=== PATIENT | male | born 1975 | race Caucasian/White ===

== ENCOUNTER → 2017-11-27 | Outpatient (REF) | payer OTHER ==
[2017-11-27 11:13] LABS: BASO # 0.1 10^3/uL (0.0-0.2); BASO % 1.1 % (0.0-1.0); EOS # 0.2 10^3/uL (0.0-0.50); EOS % 4.3 % (0.0-3.0); HEMOGLOBIN 14.9 g/dl (14.0-18.0); IMMATURE GRANULOCYTE % 0.2 % (0-3.0); LYMPH # 1.5 10^3/uL (1.5-4.5); LYMPH % 31.2 % (24.0-44.0); MEAN CORPUSCULAR HEMOGLOBIN 29.7 pg (27.0-33.0); MEAN CORPUSCULAR HGB CONC 34.7 g/dl (32.0-36.5); MEAN CORPUSCULAR VOLUME 85.7 fl (80.0-96.0); MONO # 0.6 10^3/uL (0.0-0.8); MONO % 12.4 % (0.0-5.0); NEUTROPHILS # 2.4 10^3/uL (1.8-7.7); NEUTROPHILS % 50.8 % (36.0-66.0); PLATELET COUNT, AUTOMATED 196 10^3/uL (150-450); RED BLOOD COUNT 5.02 10^6/uL (4.30-6.10); RED CELL DISTRIBUTION WIDTH 12.3 % (11.5-14.5); WHITE BLOOD COUNT 4.7 10^3/uL (4.0-10.0)
[2017-11-27 11:41] LABS: TESTOSTERONE 384 NG/DL (241-827)
[2017-11-27 11:54] LABS: ALBUMIN 3.8 GM/DL (3.2-5.2); ALBUMIN/GLOBULIN RATIO 1.19 (1.00-1.93); ALKALINE PHOSPHATASE 91 U/L (45-117); ALT/SGPT 39 U/L (12-78); ANION GAP 10 MEQ/L (8-16); AST/SGOT 21 U/L (7-37); BILIRUBIN,TOTAL 0.5 MG/DL (0.2-1.0); BLOOD UREA NITROGEN 15 MG/DL (7-18); CALCIUM LEVEL 8.8 MG/DL (8.5-10.1); CARBON DIOXIDE LEVEL 27 MEQ/L (21-32); CHLORIDE LEVEL 106 MEQ/L (98-107); CHOLESTEROL LEVEL 190 MG/DL (<200); CREATININE FOR GFR 0.91 MG/DL (0.70-1.30); GLOMERULAR FILTRATION RATE > 60.0 (>60); GLUCOSE, FASTING 94 MG/DL (70-100); HDL CHOLESTEROL 40 MG/DL (>40); LDL CHOLESTEROL 115.8 MG/DL (<100); NON-HDL-C 150 MG/DL; POTASSIUM SERUM 4.1 MEQ/L (3.5-5.1); PROSTATIC SPECIFIC AG MONITOR 0.37 NG/ML (< 4.0); SODIUM LEVEL 143 MEQ/L (136-145); THYROID STIMULATING HORMONE 0.585 uIU/ML (0.358-3.740); TRIGLYCERIDES LEVEL 171 MG/DL (<150)
== END ==
LOC: M LAB REF 10:47
DX: R68.82 Decreased libido (principal); Z00.01 Encounter for general adult medical examination with abnormal findings; R53.83 Other fatigue

== ENCOUNTER → 2017-12-11 | Outpatient (REF) | payer OTHER ==
[2017-12-11 13:01] LABS: TESTOSTERONE 378 NG/DL (241-827)
== END ==
LOC: M LAB REF 11:59
DX: R68.82 Decreased libido (principal)
CPT/HCPCS: 84403

== ENCOUNTER 2017-12-15 19:51 | Emergency (ER) | payer OTHER ==
[2017-12-15 20:28] LABS: HEMATOCRIT 44.5 % (42.0-52.0); HEMOGLOBIN 15.5 g/dl (14.0-18.0); MEAN CORPUSCULAR HEMOGLOBIN 30.1 pg (27.0-33.0); MEAN CORPUSCULAR HGB CONC 34.8 g/dl (32.0-36.5); MEAN CORPUSCULAR VOLUME 86.4 fl (80.0-96.0); PLATELET COUNT, AUTOMATED 235 10^3/uL (150-450); RED BLOOD COUNT 5.15 10^6/uL (4.30-6.10); RED CELL DISTRIBUTION WIDTH 12.6 % (11.5-14.5); WHITE BLOOD COUNT 10.1 10^3/uL (4.0-10.0)
[2017-12-15 20:58] LABS: AMPHETAMINES LEVEL URINE POSITIVE (NEGATIVE); BARBITURATES URINE NEGATIVE (NEGATIVE); BENZODIAZEPINES URINE NEGATIVE (NEGATIVE); CANNABINOIDS URINE NEGATIVE (NEGATIVE); COCAINE METABOLITE URINE NEGATIVE (NEGATIVE); METHADONE URINE NEGATIVE (NEGATIVE); OPIATES URINE NEGATIVE (NEGATIVE); PHENCYCLIDINE URINE NEGATIVE (NEGATIVE)
[2017-12-15 21:07] LABS: ACETAMINOPHEN LEVEL < 2.0 UG/ML (10.0-30.0); ALBUMIN 4.1 GM/DL (3.2-5.2); ALBUMIN/GLOBULIN RATIO 1.14 (1.00-1.93); ALKALINE PHOSPHATASE 101 U/L (45-117); ALT/SGPT 33 U/L (12-78); ANION GAP 12 MEQ/L (8-16); AST/SGOT 18 U/L (7-37); BILIRUBIN,DIRECT 0.1 MG/DL (0.0-0.2); BILIRUBIN,TOTAL 0.6 MG/DL (0.2-1.0); BLOOD UREA NITROGEN 15 MG/DL (7-18); CALCIUM LEVEL 8.2 MG/DL (8.5-10.1); CARBON DIOXIDE LEVEL 21 MEQ/L (21-32); CHLORIDE LEVEL 108 MEQ/L (98-107); CREATININE FOR GFR 0.74 MG/DL (0.70-1.30); ETHYL ALCOHOL (ETHANOL) 0.116 % (0.000-0.010); GLOMERULAR FILTRATION RATE > 60.0 (>60); GLUCOSE, FASTING 90 MG/DL (70-100); POTASSIUM SERUM 3.5 MEQ/L (3.5-5.1); SALICYLATE LEVEL < 1.7 MG/DL (5.0-30.0); SODIUM LEVEL 141 MEQ/L (136-145); TOTAL PROTEIN 7.7 GM/DL (6.4-8.2)
== END 2017-12-15 21:54 | disposition home or self-care (01) ==
LOC: M ED 19:51
DX: F43.20 Adjustment disorder, unspecified (principal); F33.9 Major depressive disorder, recurrent, unspecified; Z91.5 Personal history of self-harm; Z79.899 Other long term (current) drug therapy; Z88.2 Allergy status to sulfonamides
CPT/HCPCS: 80320

== ENCOUNTER → 2018-04-05 | Outpatient (CLI) | payer OTHER ==
[2018-04-12 08:15] LABS: SUMMARY SEE SEPARATE REPORT
== END ==
LOC: M LAB 09:32
DX: F60.3 Borderline personality disorder (principal)
CPT/HCPCS: 80320

== ENCOUNTER → 2018-04-22 | Outpatient (REF) | payer OTHER ==
[2018-04-22 15:07] LABS: TESTOSTERONE 369 NG/DL (241-827)
== END ==
LOC: M LAB REF 13:47
DX: R68.82 Decreased libido (principal)
CPT/HCPCS: 84403

== ENCOUNTER 2018-09-19 13:58 | Emergency (ER) | payer OTHER ==
[2018-09-19] MEDS: ONDANSETRON 4MG/2ML VIAL (J2405) IV (14:29)
[2018-09-19] MEDS: NS 1,000 ML IV (14:29)
[2018-09-19 14:39] LABS: BASO # 0.1 10^3/uL (0.0-0.2); BASO % 1.2 % (0.0-1.0); EOS % 0.8 % (0.0-3.0); HEMOGLOBIN 17.9 g/dl (13.5-17.5); IMMATURE GRANULOCYTE % 0.4 % (0-3.0); LYMPH # 1.1 10^3/uL (1.5-4.5); LYMPH % 23.1 % (24.0-44.0); MEAN CORPUSCULAR HEMOGLOBIN 32.3 pg (27.0-33.0); MEAN CORPUSCULAR HGB CONC 36.5 g/dl (32.0-36.5); MEAN CORPUSCULAR VOLUME 88.3 fl (80.0-96.0); MONO # 0.6 10^3/uL (0.0-0.8); NEUTROPHILS % 61.5 % (36.0-66.0); PLATELET COUNT, AUTOMATED 183 10^3/uL (150-450); RED BLOOD COUNT 5.55 10^6/uL (4.30-6.10); RED CELL DISTRIBUTION WIDTH 13.2 % (11.5-14.5); WHITE BLOOD COUNT 4.9 10^3/uL (4.0-10.0)
[2018-09-19 15:06] LABS: ALBUMIN 4.1 GM/DL (3.2-5.2); ALBUMIN/GLOBULIN RATIO 1.11 (1.00-1.93); ALKALINE PHOSPHATASE 97 U/L (45-117); ALT/SGPT 58 U/L (12-78); ANION GAP 11 MEQ/L (8-16); AST/SGOT 36 U/L (7-37); BILIRUBIN,DIRECT 0.2 MG/DL (0.0-0.2); BILIRUBIN,TOTAL 0.9 MG/DL (0.2-1.0); BLOOD UREA NITROGEN 16 MG/DL (7-18); CALCIUM LEVEL 8.7 MG/DL (8.5-10.1); CARBON DIOXIDE LEVEL 26 MEQ/L (21-32); CHLORIDE LEVEL 100 MEQ/L (98-107); CREATININE FOR GFR 0.83 MG/DL (0.70-1.30); ETHYL ALCOHOL (ETHANOL) 0.153 % (0.000-0.010); GLOMERULAR FILTRATION RATE > 60.0 (>60); GLUCOSE, FASTING 111 MG/DL (70-100); LIPASE 109 U/L (73-393); POTASSIUM SERUM 3.7 MEQ/L (3.5-5.1); SODIUM LEVEL 137 MEQ/L (136-145); TOTAL PROTEIN 7.8 GM/DL (6.4-8.2)
[2018-09-19] MEDS ORDERED: ISOVUE-370 76% 100ML VIAL (Q9967) As Ordered (15:42)
[2018-09-19] MEDS: OXAZEPAM 15 MG CAP PO (16:58)
== END 2018-09-19 19:25 | disposition home or self-care (01) ==
LOC: M ED 13:58
DX: F10.129 Alcohol abuse with intoxication, unspecified (principal); R11.2 Nausea with vomiting, unspecified; K76.0 Fatty (change of) liver, not elsewhere classified; F10.20 Alcohol dependence, uncomplicated; F32.9 Major depressive disorder, single episode, unspecified; F41.9 Anxiety disorder, unspecified; F43.10 Post-traumatic stress disorder, unspecified; F90.9 Attention-deficit hyperactivity disorder, unspecified type; Z79.899 Other long term (current) drug therapy; Z88.2 Allergy status to sulfonamides
CPT/HCPCS: J2405

== ENCOUNTER 2018-10-15 18:19 | Emergency (ER) | payer OTHER ==
[~2018-10-15] VITALS: Ht 175.3 cm; Wt 87.4 kg
[~2018-10-15 18:19] MED LIST: ABIL1TAB13 PO; ADDE20CA3 PO; ATOM40CA PO; CHLOR5CA PO; CIPR500T89 PO; GUAN1TA PO; K-PHTAB PO; KLON1TAB PO; METR500IV PO; MINI1CAP PO; OXAZ15CA4 PO; OXAZ30CA2 PO; PRAZ1CAP PO; PROZ20CA11 PO; PROZ40CA PO; TRAZ-163 PO; TRAZ100T2 PO; VENL225T PO; VENL75CA2 PO; XANA0.5T PO; XANA1TAB2 PO; ZOFR4TAB14 PO
[2018-10-15] MEDS ORDERED: ZIPR60CA11 (18:33)
[2018-10-15] MEDS ORDERED: CLON1TAB8 (18:33)
[2018-10-15] MEDS ORDERED: SERT-138 (18:33)
[2018-10-15] MEDS ORDERED: VYVA50CA4 PO (18:34)
[2018-10-15] MEDS ORDERED: NS 1,000 ML IV ONE (21:00)
[2018-10-15] MEDS ORDERED: ONDANSETRON 4MG/2ML VIAL (J2405) IV ONE (21:00)
[2018-10-15 21:37] LABS: BASO # 0.1 10^3/uL (0.0-0.2); BASO % 1.2 % (0.0-1.0); EOS # 0.2 10^3/uL (0.0-0.50); HEMATOCRIT 44.2 % (42.0-52.0); HEMOGLOBIN 16.1 g/dl (13.5-17.5); LYMPH # 1.7 10^3/uL (1.5-4.5); LYMPH % 34.7 % (24.0-44.0); MEAN CORPUSCULAR HEMOGLOBIN 32.1 pg (27.0-33.0); MEAN CORPUSCULAR HGB CONC 36.4 g/dl (32.0-36.5); MEAN CORPUSCULAR VOLUME 88.2 fl (80.0-96.0); MONO # 0.7 10^3/uL (0.0-0.8); MONO % 13.1 % (0.0-5.0); NEUTROPHILS # 2.4 10^3/uL (1.8-7.7); NEUTROPHILS % 47.8 % (36.0-66.0); PLATELET COUNT, AUTOMATED 238 10^3/uL (150-450); RED BLOOD COUNT 5.01 10^6/uL (4.30-6.10)
[2018-10-15 22:00] LABS: ALBUMIN 3.6 GM/DL (3.2-5.2); ALT/SGPT 41 U/L (12-78); BILIRUBIN,DIRECT 0.1 MG/DL (0.0-0.2); BILIRUBIN,TOTAL 0.5 MG/DL (0.2-1.0); BLOOD UREA NITROGEN 12 MG/DL (7-18); CALCIUM LEVEL 8.5 MG/DL (8.5-10.1); CARBON DIOXIDE LEVEL 24 MEQ/L (21-32); CHLORIDE LEVEL 106 MEQ/L (98-107); CREATININE FOR GFR 0.94 MG/DL (0.70-1.30); ETHYL ALCOHOL (ETHANOL) 0.133 % (0.000-0.010); GLOMERULAR FILTRATION RATE > 60.0 (>60); GLUCOSE, FASTING 119 MG/DL (70-100); LIPASE 125 U/L (73-393); POTASSIUM SERUM 3.5 MEQ/L (3.5-5.1); SODIUM LEVEL 141 MEQ/L (136-145); TOTAL PROTEIN 6.6 GM/DL (6.4-8.2)
[2018-10-15] MEDS ORDERED: ISOVUE-370 76% 100ML VIAL (Q9967) As Ordered ONE (22:22)
--- NOTE | 2018-10-15 23:19 | REPVR ---
EXAM: CT Abdomen and Pelvis With Contrast EXAM DATE/TIME: 10/15/2018 10:46 PM CLINICAL HISTORY: 43 years old, male; Pain; Abdominal pain; Generalized TECHNIQUE: Axial computed tomography images of the abdomen and pelvis with intravenous contrast. All CT scans at this facility use at least one of these dose optimization techniques: automated exposure control; mA and/or kV adjustment per patient size (includes targeted exams where dose is matched to clinical indication); or iterative reconstruction. Coronal and sagittal reformatted images were created and reviewed. CONTRAST: 100 ml of ISOVUE 370 administered intravenously. COMPARISON: CT ABD/PEL W/IV CONTRAST ONLY 09/19/2018 3:50 PM FINDINGS: Lower thorax: Small sliding hiatal hernia. ABDOMEN: Liver: There is a diffuse decrease in hepatic parenchymal density, consistent with fatty infiltration. Gallbladder and bile ducts: Normal. No calcified stones. No ductal dilation. Pancreas: Normal. No ductal dilation. Spleen: Small subcentimeter nonspecific lucencies demonstrated in the spleen stable in appearance in comparison to the prior study. Adrenals: Small right adrenal lipoma measures 10 mm. Findings stable. Kidneys and ureters: Small cyst left kidney measures 7 mm. Stomach and bowel: Normal. No obstruction. No mucosal thickening. Appendix: Normal appendix. PELVIS: Bladder: Unremarkable as visualized. Reproductive: Unremarkable as visualized. ABDOMEN and PELVIS: Intraperitoneal space: Normal. No free air. No significant fluid collection. Bones/joints: Bilateral spondylolysis at L5 without evidence of spondylolisthesis. Soft tissues: Unremarkable. Vasculature: Suggestion of a filling defect in the main and right portal vein may represent flow artifact although a thrombus not excluded. Ultrasound correlation with Doppler suggested. Lymph nodes: Normal. No enlarged lymph nodes. IMPRESSION: 1. There is a diffuse decrease in hepatic parenchymal density, consistent with fatty infiltration. 2. Suggestion of a filling defect in the main and right portal vein may represent flow artifact although a nonocclusive S. thrombus not excluded. Ultrasound correlation with Doppler suggested. 3. Small sliding hiatal hernia. COMMENT: Consistent with the [employer]'s Incidental Findings Committee Report (J Am Kayy Radiol 2010): Unless the patient's specific circumstances suggest otherwise, any liver lesion 0.5 cm or less, any cystic kidney lesion less than 1.0 cm, and/or any adrenal lesion 1.0 cm or less not otherwise characterized in this report as possessing suspicious or indeterminate imaging features is/are highly likely to be benign and do not require follow-up imaging or biopsy. Electronically signed by: Jovon Calhoun On 10/15/2018 23:19:38 PM
[2018-10-15] MEDS ORDERED: LORazepam 2 MG/ML VIAL (J2060) IV STA (23:31)
[2018-10-16] MEDS ORDERED: OXAZ10CA3 PO (00:46)
[2018-10-16] MEDS ORDERED: OXAZEPAM 10 MG CAP PO ONE (01:00)
[2018-10-16 01:19] VITALS: BP 128/70
--- NOTE | 2018-10-16 01:33 | REPVR ---
EXAM: US Abdomen Complete EXAM DATE/TIME: 10/15/2018 12:44 AM CLINICAL HISTORY: 43 years old, male; Abnormal findings; Abnormal radiologic finding of the abdomen; Radiologic exam and body structure: CT abd/pel; Additional info: Portal vein occlusion possible TECHNIQUE: Real-time ultrasound of the abdomen with image documentation. COMPARISON: GALLBLADDER US 06/05/2015 3:07 PM FINDINGS: Liver: Hepatomegaly and steatosis. Gallbladder: Cholelithiasis. There is no gallbladder wall thickening. Common bile duct: Normal. No stones. No dilation. Pancreas: Visualized pancreas is unremarkable. Right kidney: Normal. No mass. No hydronephrosis. Left kidney: Normal. No mass. No hydronephrosis. Spleen: Normal. No splenomegaly. Aorta: Normal. No aneurysm. Inferior vena cava: Normal. IMPRESSION: Hepatomegaly and steatosis. Hepatopetal portal vein flow without evidence of occlusion. Cholelithiasis. Electronically signed by: Milan Haro On 10/16/2018 01:32:52 AM
--- NOTE | 2018-10-17 16:10 | ED PDOC ---
Post-Departure Follow-Up dr william faxed formal report of ct abd/p for fu Ellen Henley MD Oct 17, 2018 16:10
--- NOTE | 2018-10-17 16:10 | ED PDOC ---
Post-Departure Follow-Up abdominal us also faxed to dr william for fu Ellen Henley MD Oct 17, 2018 16:10
== END 2018-10-16 01:22 | disposition home or self-care (01) ==
LOC: M ED 18:19
DX: F10.120 Alcohol abuse with intoxication, uncomplicated (principal); R10.9 Unspecified abdominal pain; R93.7 Abnormal findings on diagnostic imaging of other parts of musculoskeletal system; F43.10 Post-traumatic stress disorder, unspecified; F32.9 Major depressive disorder, single episode, unspecified; F41.9 Anxiety disorder, unspecified; Z88.2 Allergy status to sulfonamides; Z79.899 Other long term (current) drug therapy
CPT/HCPCS: 74177; 76700; 80048; 80076; 83690; 85025; 93041; 93975; 96374; 96375; 99284; G0480; J2060; J2405; Q9967

== ENCOUNTER → 2018-10-24 | Outpatient (CLI) | payer MEDICAID ==
[~2018-10-24] MED LIST changes: +CLON1TAB8; +OXAZ10CA3 PO; +SERT-138; +VYVA50CA4 PO; +ZIPR60CA11
== END ==
LOC: M OUTALCOH 07:46
PROVIDERS: ATTEND Psychiatry & Neurology Psychiatry
DX: Z13.89 Encounter for screening for other disorder (principal); F10.20 Alcohol dependence, uncomplicated

== ENCOUNTER 2018-10-31 11:00 | Outpatient (RCR) | payer MEDICAID | END 2018-11-07 | LOC: M OUTALCOH 11:00 | PROVIDERS: ATTEND Psychiatry & Neurology Psychiatry | DX: F10.20 Alcohol dependence, uncomplicated (principal) ==

== ENCOUNTER 2018-11-11 10:23 | Emergency (ER) | payer MEDICAID, OTHER ==
[~2018-11-11] VITALS: Ht 175.3 cm; Wt 85.9 kg
[2018-11-11 10:53] LABS: HEMATOCRIT 43.2 % (42.0-52.0); HEMOGLOBIN 15.6 g/dl (13.5-17.5); MEAN CORPUSCULAR HEMOGLOBIN 31.5 pg (27.0-33.0); MEAN CORPUSCULAR HGB CONC 36.1 g/dl (32.0-36.5); MEAN CORPUSCULAR VOLUME 87.3 fl (80.0-96.0); PLATELET COUNT, AUTOMATED 269 10^3/uL (150-450); RED BLOOD COUNT 4.95 10^6/uL (4.30-6.10); WHITE BLOOD COUNT 5.6 10^3/uL (4.0-10.0)
[2018-11-11 11:30] LABS: ACETAMINOPHEN LEVEL < 2.0 UG/ML (10.0-30.0); ALBUMIN 3.7 GM/DL (3.2-5.2); ALT/SGPT 28 U/L (12-78); BILIRUBIN,DIRECT 0.1 MG/DL (0.0-0.2); BILIRUBIN,TOTAL 0.5 MG/DL (0.2-1.0); BLOOD UREA NITROGEN 11 MG/DL (7-18); CALCIUM LEVEL 8.1 MG/DL (8.5-10.1); CARBON DIOXIDE LEVEL 26 MEQ/L (21-32); CHLORIDE LEVEL 112 MEQ/L (98-107); CREATININE FOR GFR 0.62 MG/DL (0.70-1.30); GLOMERULAR FILTRATION RATE > 60.0 (>60); GLUCOSE, FASTING 109 MG/DL (70-100); POTASSIUM SERUM 3.8 MEQ/L (3.5-5.1); SALICYLATE LEVEL < 1.7 MG/DL (5.0-30.0); SODIUM LEVEL 146 MEQ/L (136-145); THYROID STIMULATING HORMONE 0.767 uIU/ML (0.358-3.740); TOTAL PROTEIN 6.8 GM/DL (6.4-8.2)
[2018-11-11 12:41] LABS: AMPHETAMINES LEVEL URINE NEGATIVE (NEGATIVE); BARBITURATES URINE NEGATIVE (NEGATIVE); BENZODIAZEPINES URINE NEGATIVE (NEGATIVE); CANNABINOIDS URINE NEGATIVE (NEGATIVE); COCAINE METABOLITE URINE NEGATIVE (NEGATIVE); METHADONE URINE NEGATIVE (NEGATIVE); OPIATES URINE NEGATIVE (NEGATIVE); PHENCYCLIDINE URINE NEGATIVE (NEGATIVE)
[2018-11-11] MEDS ORDERED: ONDANSETRON 4 MG ORAL DISINTEGRATING TAB (Q0162 PER 1MG) PO ONE (15:30)
[2018-11-11] MEDS ORDERED: OXAZEPAM 15 MG CAP PO ONE (17:00)
[2018-11-11] MEDS ORDERED: CALCIUM CARBONATE 500 MG CHEW U/D PO ONE (19:00)
[2018-11-11 20:21] VITALS: BP 126/84
[2018-11-11] MEDS ORDERED: OXAZ30CA2 PO (20:31)
== END 2018-11-11 20:47 | disposition home or self-care (01) ==
LOC: M ED 10:23
DX: F10.120 Alcohol abuse with intoxication, uncomplicated (principal); F32.9 Major depressive disorder, single episode, unspecified; Z88.2 Allergy status to sulfonamides; Z79.899 Other long term (current) drug therapy
CPT/HCPCS: 36415; 80048; 80076; 80307; 84443; 85027; 99284; G0480; Q0162

== ENCOUNTER 2018-11-21 11:00 | Outpatient (RCR) | payer MEDICAID ==
[2018-11-29] MEDS ORDERED: TRAZ150T90 PO (15:56)
[2018-11-29] MEDS ORDERED: GEOD60CA PO (15:56)
[2018-11-29] MEDS ORDERED: SERT-155 PO (15:56)
[2018-11-29] MEDS ORDERED: CLON0.5T8 PO (15:56)
== END 2018-12-05 ==
LOC: M OUTALCOH 11:00
PROVIDERS: ATTEND Psychiatry & Neurology Psychiatry
DX: F10.20 Alcohol dependence, uncomplicated (principal)

== ENCOUNTER 2018-11-29 15:38 | Emergency (ER) | payer MEDICAID, OTHER ==
[~2018-11-29] VITALS: Ht 180.3 cm; Wt 81.8 kg
[2018-11-29] MEDS ORDERED: GEOD60CA PO (15:56)
[2018-11-29] MEDS ORDERED: CLON0.5T8 PO (15:56)
[2018-11-29] MEDS ORDERED: TRAZ150T90 PO (15:56)
[2018-11-29] MEDS ORDERED: SERT-155 PO (15:56)
[2018-11-29 16:25] LABS: HEMATOCRIT 46.5 % (42.0-52.0); HEMOGLOBIN 16.4 g/dl (13.5-17.5); MEAN CORPUSCULAR HEMOGLOBIN 31.4 pg (27.0-33.0); MEAN CORPUSCULAR HGB CONC 35.3 g/dl (32.0-36.5); MEAN CORPUSCULAR VOLUME 88.9 fl (80.0-96.0); PLATELET COUNT, AUTOMATED 146 10^3/uL (150-450); RED BLOOD COUNT 5.23 10^6/uL (4.30-6.10); WHITE BLOOD COUNT 7.8 10^3/uL (4.0-10.0)
[2018-11-29 16:54] LABS: AMPHETAMINES LEVEL URINE NEGATIVE (NEGATIVE); BARBITURATES URINE NEGATIVE (NEGATIVE); BENZODIAZEPINES URINE NEGATIVE (NEGATIVE); CANNABINOIDS URINE NEGATIVE (NEGATIVE); COCAINE METABOLITE URINE NEGATIVE (NEGATIVE); METHADONE URINE NEGATIVE (NEGATIVE); OPIATES URINE NEGATIVE (NEGATIVE); PHENCYCLIDINE URINE NEGATIVE (NEGATIVE)
[2018-11-29 17:01] LABS: BLOOD UREA NITROGEN 13 MG/DL (7-18); CARBON DIOXIDE LEVEL 28 MEQ/L (21-32); CHLORIDE LEVEL 100 MEQ/L (98-107); CREATININE FOR GFR 0.84 MG/DL (0.70-1.30); GLOMERULAR FILTRATION RATE > 60.0 (>60); GLUCOSE, FASTING 109 MG/DL (70-100); POTASSIUM SERUM 3.7 MEQ/L (3.5-5.1); SODIUM LEVEL 140 MEQ/L (136-145)
[2018-11-29 17:02] LABS: ACETAMINOPHEN LEVEL < 2.0 UG/ML (10.0-30.0); ALBUMIN 3.9 GM/DL (3.2-5.2); ALT/SGPT 42 U/L (12-78); BILIRUBIN,DIRECT 0.3 MG/DL (0.0-0.2); BILIRUBIN,TOTAL 1.4 MG/DL (0.2-1.0); CALCIUM LEVEL 8.6 MG/DL (8.5-10.1); ETHYL ALCOHOL (ETHANOL) 0.299 % (0.000-0.010); SALICYLATE LEVEL < 1.7 MG/DL (5.0-30.0); THYROID STIMULATING HORMONE 0.658 uIU/ML (0.358-3.740); TOTAL PROTEIN 7.3 GM/DL (6.4-8.2)
[2018-11-29] MEDS ORDERED: OXAZEPAM 15 MG CAP PO ONE (19:30)
[2018-11-29] MEDS ORDERED: CALCIUM CARBONATE 500 MG CHEW U/D PO ONE (22:00)
[2018-11-29] MEDS ORDERED: ONDANSETRON 4 MG ORAL DISINTEGRATING TAB (Q0162 PER 1MG) PO ONE (23:45)
[2018-11-30] MEDS ORDERED: OXAZEPAM 15 MG CAP PO ONE ×2 (00:30→08:45)
[2018-11-30] MEDS ORDERED: GI COCKTAIL 50ML BTL(HYOSCYAMINE/MAALOX/LIDOCAINE VISCOUS)(1:3:1) PO ONE (04:45)
[2018-11-30 08:50] VITALS: BP 136/94
== END 2018-11-30 08:51 | disposition home or self-care (01) ==
LOC: M ED 15:38
DX: F10.120 Alcohol abuse with intoxication, uncomplicated (principal); R45.851 Suicidal ideations; F32.9 Major depressive disorder, single episode, unspecified; Z88.2 Allergy status to sulfonamides; Z79.899 Other long term (current) drug therapy
CPT/HCPCS: 36415; 80048; 80076; 80307; 84443; 85027; 99284; G0480; Q0162

== ENCOUNTER → 2019-01-13 | Outpatient (CLI) | payer MEDICAID ==
[~2019-01-13] MED LIST changes: +CHLO1CAP7 PO; -CHLOR5CA PO; +CLON0.5T8 PO; +GEOD60CA PO; +METR1INJ2 PO; -METR500IV PO; +SERT-155 PO; +TRAZ150T90 PO; -VENL225T PO; +VENL225T5 PO
== END ==
LOC: M OUTALCOH 07:50
PROVIDERS: ATTEND Psychiatry & Neurology Psychiatry
DX: F10.20 Alcohol dependence, uncomplicated (principal)

== ENCOUNTER 2019-01-31 08:50 | Outpatient (RCR) | payer MEDICAID | END 2019-02-04 | LOC: M OUTALCOH 08:50 | PROVIDERS: ATTEND Psychiatry & Neurology Psychiatry | DX: F10.20 Alcohol dependence, uncomplicated (principal) ==

== ENCOUNTER 2019-02-21 10:00 | Outpatient (RCR) | payer MEDICAID | END 2019-03-07 | LOC: M OUTALCOH 10:00 | PROVIDERS: ATTEND Psychiatry & Neurology Psychiatry | DX: F10.20 Alcohol dependence, uncomplicated (principal) ==

== ENCOUNTER → 2019-03-20 | Outpatient (CLI) | payer MEDICAID ==
[2019-03-20 14:14] LABS: BASO % 0.3 % (0.0-1.0); EOS % 0.1 % (0.0-3.0); HEMATOCRIT 45.8 % (42.0-52.0); HEMOGLOBIN 15.4 g/dl (13.5-17.5); LYMPH # 0.8 10^3/uL (1.5-4.5); LYMPH % 7.6 % (24.0-44.0); MEAN CORPUSCULAR HEMOGLOBIN 29.3 pg (27.0-33.0); MEAN CORPUSCULAR HGB CONC 33.6 g/dl (32.0-36.5); MEAN CORPUSCULAR VOLUME 87.1 fl (80.0-96.0); MONO # 0.2 10^3/uL (0.0-0.8); MONO % 2.2 % (0.0-5.0); NEUTROPHILS # 9.5 10^3/uL (1.8-7.7); NEUTROPHILS % 89.3 % (36.0-66.0); PLATELET COUNT, AUTOMATED 242 10^3/uL (150-450); RED BLOOD COUNT 5.26 10^6/uL (4.30-6.10); WHITE BLOOD COUNT 10.6 10^3/uL (4.0-10.0)
[2019-03-20 14:41] LABS: ALBUMIN 3.9 GM/DL (3.2-5.2); ALT/SGPT 25 U/L (12-78); BILIRUBIN,TOTAL 0.5 MG/DL (0.2-1.0); BLOOD UREA NITROGEN 17 MG/DL (7-18); CARBON DIOXIDE LEVEL 24 MEQ/L (21-32); CHLORIDE LEVEL 109 MEQ/L (98-107); CREATININE FOR GFR 1.12 MG/DL (0.70-1.30); GLOMERULAR FILTRATION RATE > 60.0 (>60); GLUCOSE, FASTING 124 MG/DL (70-100); SODIUM LEVEL 143 MEQ/L (136-145); TOTAL PROTEIN 7.1 GM/DL (6.4-8.2)
== END ==
LOC: M LAB 12:55
PROVIDERS: ATTEND Dermatology
DX: L20.81 Atopic neurodermatitis (principal)

== ENCOUNTER 2019-03-24 09:30 | Outpatient (RCR) | payer MEDICAID | END 2019-04-06 | LOC: M OUTALCOH 09:30 | PROVIDERS: ATTEND Psychiatry & Neurology Psychiatry | DX: F10.20 Alcohol dependence, uncomplicated (principal) ==

== ENCOUNTER 2019-05-06 15:52 | Outpatient (RCR) | payer MEDICAID | END 2019-05-07 | LOC: M OUTALCOH 15:52 | PROVIDERS: ATTEND Psychiatry & Neurology Psychiatry | DX: F10.20 Alcohol dependence, uncomplicated (principal) ==

== ENCOUNTER 2019-06-03 14:00 | Outpatient (RCR) | payer MEDICAID | END 2019-06-07 | LOC: M OUTALCOH 14:00 | PROVIDERS: ATTEND Psychiatry & Neurology Psychiatry | DX: F10.20 Alcohol dependence, uncomplicated (principal) ==

== ENCOUNTER → 2019-07-07 | Outpatient (RCR) | payer MEDICAID | LOC: M OUTALCOH 06-17 15:33 | PROVIDERS: ATTEND Psychiatry & Neurology Psychiatry | DX: F10.20 Alcohol dependence, uncomplicated (principal) ==

== ENCOUNTER 2019-08-06 16:00 | Outpatient (RCR) | payer MEDICAID ==
[~2019-08-06 16:00] MED LIST changes: -SERT-155 PO; +SERT50TA29 PO
== END 2019-08-07 ==
LOC: M OUTALCOH 16:00
PROVIDERS: ATTEND Psychiatry & Neurology Psychiatry
DX: F10.20 Alcohol dependence, uncomplicated (principal)

== ENCOUNTER → 2019-08-15 | Outpatient (REF) | payer MEDICAID ==
[2019-08-15 18:20] LABS: BASO # 0.1 10^3/uL (0.0-0.2); BASO % 1.4 % (0.0-1.0); EOS # 0.3 10^3/uL (0.0-0.5); EOS % 5.9 % (0.0-3.0); HEMATOCRIT 46.9 % (42.0-52.0); HEMOGLOBIN 16.1 g/dl (13.5-17.5); LYMPH # 1.4 10^3/uL (1.5-5.0); LYMPH % 24.9 % (24.0-44.0); MEAN CORPUSCULAR HEMOGLOBIN 30.7 pg (27.0-33.0); MEAN CORPUSCULAR HGB CONC 34.3 g/dl (32.0-36.5); MEAN CORPUSCULAR VOLUME 89.3 fl (80.0-96.0); MONO # 0.7 10^3/uL (0.0-0.8); MONO % 11.8 % (0.0-5.0); NEUTROPHILS # 3.2 10^3/uL (1.5-8.5); NEUTROPHILS % 55.8 % (36.0-66.0); PLATELET COUNT, AUTOMATED 218 10^3/uL (150-450); RED BLOOD COUNT 5.25 10^6/uL (4.30-6.10); WHITE BLOOD COUNT 5.8 10^3/uL (4.0-10.0)
[2019-08-15 18:30] LABS: ALBUMIN 3.6 GM/DL (3.2-5.2); ALT/SGPT 61 U/L (12-78); BLOOD UREA NITROGEN 15 MG/DL (7-18); CALCIUM LEVEL 8.6 MG/DL (8.5-10.1); CARBON DIOXIDE LEVEL 24 MEQ/L (21-32); CHLORIDE LEVEL 109 MEQ/L (98-107); CHOLESTEROL LEVEL 221 MG/DL (<200); CHOLESTEROL RISK RATIO 4.911 (<5); CREATININE FOR GFR 1.07 MG/DL (0.70-1.30); GLOMERULAR FILTRATION RATE > 60.0 (>60); GLUCOSE, FASTING 150 MG/DL (70-100); HDL CHOLESTEROL 45 MG/DL (>40); LDL CHOLESTEROL 96 MG/DL (<100); NON-HDL-C 176 MG/DL; POTASSIUM SERUM 3.9 MEQ/L (3.5-5.1); SODIUM LEVEL 140 MEQ/L (136-145); TOTAL PROTEIN 6.6 GM/DL (6.4-8.2); TRIGLYCERIDES LEVEL 399 MG/DL (<150)
[2019-08-15 18:31] LABS: TOTAL 25(OH) VITAMIN D 18.8 NG/ML (30.0-100.0)
[2019-08-15 19:04] LABS: HEMOGLOBIN A1c 5.4 %
== END ==
LOC: M LAB REF 17:53
PROVIDERS: ATTEND Nurse Practitioner Family
DX: Z00.01 Encounter for general adult medical examination with abnormal findings (principal)

== ENCOUNTER 2019-09-03 13:59 | Outpatient (RCR) | payer MEDICAID ==
[~2019-09-03 13:59] MED LIST changes: +CLON0.5T2 PO; -CLON0.5T8 PO
== END 2019-09-06 ==
LOC: M OUTALCOH 13:59
PROVIDERS: ATTEND Psychiatry & Neurology Psychiatry
DX: F10.20 Alcohol dependence, uncomplicated (principal)

== ENCOUNTER → 2019-09-09 | Outpatient (CLI) | payer OTHER ==
[2019-09-09 12:29] LABS: BASO # 0.1 10^3/uL (0.0-0.2); BASO % 0.8 % (0.0-1.0); EOS # 0.2 10^3/uL (0.0-0.5); EOS % 3.6 % (0.0-3.0); HEMATOCRIT 45.6 % (42.0-52.0); HEMOGLOBIN 15.7 g/dl (13.5-17.5); LYMPH # 1.6 10^3/uL (1.5-5.0); LYMPH % 25.5 % (24.0-44.0); MEAN CORPUSCULAR HEMOGLOBIN 30.5 pg (27.0-33.0); MEAN CORPUSCULAR HGB CONC 34.4 g/dl (32.0-36.5); MEAN CORPUSCULAR VOLUME 88.7 fl (80.0-96.0); MONO # 0.6 10^3/uL (0.0-0.8); MONO % 9.1 % (0.0-5.0); NEUTROPHILS # 3.8 10^3/uL (1.5-8.5); NEUTROPHILS % 60.8 % (36.0-66.0); PLATELET COUNT, AUTOMATED 234 10^3/uL (150-450); RED BLOOD COUNT 5.14 10^6/uL (4.30-6.10); WHITE BLOOD COUNT 6.2 10^3/uL (4.0-10.0)
[2019-09-09 12:31] LABS: HEMATOCRIT 47.7 % (42.0-52.0)
[2019-09-09 12:57] LABS: C REACTIVE PROTEIN QUANTITATIV < 0.30 MG/DL (0.00-0.30); FREE T3 3.4 PG/ML (2.2-4.0); FREE T4 1.03 NG/DL (0.76-1.46); IMMUNOGLOBULIN G 792 MG/DL (681-1648)
[2019-09-09 13:00] LABS: ERYTHROCYTE SEDIMENTATION RATE 2 mm/hr (0-15)
[2019-09-09 13:08] LABS: TOTAL 25(OH) VITAMIN D 18.7 NG/ML (30.0-100.0); VITAMIN B12 LEVEL 720 PG/ML (247-911)
[2019-09-10 10:15] LABS: THYROID PEROXIDASE ANTIBODY 28.9 U/ML (<60.0)
[2019-09-10 10:16] LABS: THYROGLOBULIN ANTIBODY < 15.0 U/ML (<60.0)
[2019-09-12 08:17] LABS: MAGNESIUM RBC LEVEL 4.3 mg/dL (4.2-6.8); TISSUE TRANSGLUTAMINASE IgA <2 U/mL (0-3); UNITSIGA FOR GLIADIN IGA 5 units (0-19); UNITSIGG FOR GLIADIN IGG 2 units (0-19)
== END ==
LOC: M LAB 10:22
PROVIDERS: ATTEND Nurse Practitioner Pediatrics
DX: F60.3 Borderline personality disorder (principal); F90.1 Attention-deficit hyperactivity disorder, predominantly hyperactive type; F51.01 Primary insomnia; L50.0 Allergic urticaria

== ENCOUNTER → 2019-10-07 | Outpatient (RCR) | payer MEDICAID | LOC: M OUTALCOH 09-09 08:59 | PROVIDERS: ATTEND Psychiatry & Neurology Psychiatry | DX: F10.20 Alcohol dependence, uncomplicated (principal) ==

== ENCOUNTER → 2019-10-21 | Outpatient (CLI) | payer MEDICAID ==
[~2019-10-21] MED LIST changes: -TRAZ-163 PO; +TRAZ-257 PO
== END ==
LOC: M PLALAB 14:05
PROVIDERS: ATTEND Psychiatry & Neurology Addiction Medicine
DX: F10.20 Alcohol dependence, uncomplicated (principal)

== ENCOUNTER 2019-11-06 10:00 | Outpatient (RCR) | payer MEDICAID | END 2019-11-07 | LOC: M OUTALCOH 10:00 | PROVIDERS: ATTEND Psychiatry & Neurology Addiction Medicine | DX: F10.20 Alcohol dependence, uncomplicated (principal) ==

== ENCOUNTER 2019-12-04 11:00 | Outpatient (RCR) | payer MEDICAID | END 2019-12-06 | LOC: M OUTALCOH 11:00 | PROVIDERS: ATTEND Psychiatry & Neurology Addiction Medicine | DX: F10.20 Alcohol dependence, uncomplicated (principal) ==

== ENCOUNTER 2019-12-31 14:00 | Outpatient (RCR) | payer MEDICAID | END 2020-01-06 | LOC: M OUTALCOH 14:00 | PROVIDERS: ATTEND Psychiatry & Neurology Addiction Medicine | DX: F10.20 Alcohol dependence, uncomplicated (principal) ==

== ENCOUNTER 2020-01-23 13:00 | Outpatient (RCR) | payer MEDICAID ==
[~2020-01-23 13:00] MED LIST changes: -ATOM40CA PO; +ATOM40CA16 PO
== END 2020-02-05 ==
LOC: M OUTALCOH 13:00
PROVIDERS: ATTEND Psychiatry & Neurology Addiction Medicine
DX: F10.20 Alcohol dependence, uncomplicated (principal)

== ENCOUNTER → 2020-01-28 | Outpatient (CLI) | payer OTHER ==
[2020-01-28 10:06] LABS: BASO # 0.1 10^3/uL (0.0-0.2); BASO % 1.3 % (0.0-1.0); EOS # 0.2 10^3/uL (0.0-0.5); EOS % 3.8 % (0.0-3.0); HEMOGLOBIN 16.1 g/dl (13.5-17.5); LYMPH # 2.3 10^3/uL (1.5-5.0); MEAN CORPUSCULAR HEMOGLOBIN 32.6 pg (27.0-33.0); MEAN CORPUSCULAR VOLUME 93.1 fl (80.0-96.0); MONO # 0.6 10^3/uL (0.0-0.8); MONO % 9.1 % (0.0-5.0); NEUTROPHILS % 48.3 % (36.0-66.0); PLATELET COUNT, AUTOMATED 248 10^3/uL (150-450); RED BLOOD COUNT 4.94 10^6/uL (4.30-6.10); WHITE BLOOD COUNT 6.3 10^3/uL (4.0-10.0)
[2020-01-28 10:59] LABS: ALBUMIN 3.7 GM/DL (3.2-5.2); ALT/SGPT 92 U/L (12-78); BILIRUBIN,TOTAL 0.8 MG/DL (0.2-1.0); BLOOD UREA NITROGEN 13 MG/DL (7-18); CALCIUM LEVEL 8.9 MG/DL (8.5-10.1); CARBON DIOXIDE LEVEL 26 MEQ/L (21-32); CHLORIDE LEVEL 106 MEQ/L (98-107); CREATININE FOR GFR 1.29 MG/DL (0.70-1.30); GLOMERULAR FILTRATION RATE > 60.0 (>60); GLUCOSE, FASTING 126 MG/DL (70-100); POTASSIUM SERUM 3.6 MEQ/L (3.5-5.1); SODIUM LEVEL 141 MEQ/L (136-145)
== END ==
LOC: M LAB 09:28
PROVIDERS: ATTEND Dermatology
DX: L20.81 Atopic neurodermatitis (principal)

== ENCOUNTER → 2020-03-04 | Outpatient (REF) | payer MEDICAID ==
[2020-03-04 14:04] LABS: BASO # 0.1 10^3/uL (0.0-0.2); BASO % 1.2 % (0.0-1.0); EOS # 0.3 10^3/uL (0.0-0.5); EOS % 5.2 % (0.0-3.0); HEMATOCRIT 45.3 % (42.0-52.0); HEMOGLOBIN 16.2 g/dl (13.5-17.5); LYMPH # 1.9 10^3/uL (1.5-5.0); LYMPH % 33.7 % (24.0-44.0); MEAN CORPUSCULAR HGB CONC 35.8 g/dl (32.0-36.5); MONO # 0.7 10^3/uL (0.0-0.8); MONO % 12.2 % (0.0-5.0); NEUTROPHILS # 2.7 10^3/uL (1.5-8.5); NEUTROPHILS % 47.5 % (36.0-66.0); PLATELET COUNT, AUTOMATED 145 10^3/uL (150-450); RED BLOOD COUNT 4.77 10^6/uL (4.30-6.10); WHITE BLOOD COUNT 5.7 10^3/uL (4.0-10.0)
[2020-03-04 14:15] LABS: ALBUMIN 3.6 GM/DL (3.2-5.2); ALT/SGPT 102 U/L (12-78); BILIRUBIN,TOTAL 1.4 MG/DL (0.2-1.0); BLOOD UREA NITROGEN 20 MG/DL (7-18); CALCIUM LEVEL 8.4 MG/DL (8.5-10.1); CARBON DIOXIDE LEVEL 26 MEQ/L (21-32); CHLORIDE LEVEL 107 MEQ/L (98-107); CHOLESTEROL LEVEL 219 MG/DL (<200); CHOLESTEROL RISK RATIO 5.341 (<5); CREATININE FOR GFR 1.09 MG/DL (0.70-1.30); FREE T4 1.44 NG/DL (0.76-1.46); GLOMERULAR FILTRATION RATE > 60.0 (>60); GLUCOSE, FASTING 102 MG/DL (70-100); HDL CHOLESTEROL 41 MG/DL (>40); HEMOGLOBIN A1c 5.3 %; LDL CHOLESTEROL 108 MG/DL (<100); NON-HDL-C 178 MG/DL; POTASSIUM SERUM 3.5 MEQ/L (3.5-5.1); SODIUM LEVEL 139 MEQ/L (136-145); TOTAL 25(OH) VITAMIN D 41.9 NG/ML (30.0-100.0); TOTAL PROTEIN 6.9 GM/DL (6.4-8.2); TRIGLYCERIDES LEVEL 349 MG/DL (<150)
[2020-03-04 15:37] LABS: APPEARANCE, URINE CLEAR (CLEAR); BACTERIA, URINE AUTO NEGATIVE (NEGATIVE); BILIRUBIN, URINE AUTO NEGATIVE (NEGATIVE); BLOOD, URINE BLOOD NEGATIVE (NEGATIVE); COLOR, URINE YELLOW (YELLOW); GLUCOSE, URINE (UA) AUTO NEGATIVE (NEGATIVE); KETONE, URINE AUTO NEGATIVE (NEGATIVE); LEUKOCYTE ESTERASE, URINE AUTO NEGATIVE (NEGATIVE); MUCUS, URINE SMALL (NEGATIVE); NITRITE, URINE AUTO NEGATIVE (NEGATIVE); PROTEIN, URINE AUTO NEGATIVE (NEGATIVE); RBC, URINE AUTO 1 /HPF (0-3); SQUAMOUS EPITHELIAL CELL UR AU 0 /HPF (0-6); WBC, URINE AUTO 0 /HPF (0-3)
== END ==
LOC: M LAB REF 12:37
PROVIDERS: ATTEND Nurse Practitioner Family
DX: R00.0 Tachycardia, unspecified (principal); R19.7 Diarrhea, unspecified; F10.10 Alcohol abuse, uncomplicated; F41.8 Other specified anxiety disorders

== ENCOUNTER 2020-03-05 13:00 | Outpatient (RCR) | payer MEDICAID | END 2020-03-07 | LOC: M OUTALCOH 13:00 | PROVIDERS: ATTEND Psychiatry & Neurology Addiction Medicine | DX: F10.20 Alcohol dependence, uncomplicated (principal) ==

== ENCOUNTER → 2020-03-06 | Outpatient (CLI) | payer OTHER ==
--- NOTE | 2020-03-06 10:55 | ECGEPIP ---
[facility] Test Date: 2020-03-06 Pat Name: SUSANNE LOZA Department: Room: - Gender: Male Travel Attendants: JAY JAY : 1975 Requested By: Chung Cisneros Order Number: [id number] Reading MD: Mariah Caldwell Measurements Intervals [place] Rate: 101 P: 35 CO: 139 QRS: 16 QRSD: 94 T: 3 QT: 355 QTc: 461 Interpretive Statements SINUS TACHYCARDIA PROBABLE INFERIOR MYOCARDIAL INFARCTION, PROBABLY OLD WITH POSTERIOR EXTENSION NO CHANGE COMPARED TO 04/25/16 Electronically Signed on 03-06-2020 10:55:32 EDT by Mariah Caldwell
[2020-03-06 11:00] LABS: BASO # 0.1 10^3/uL (0.0-0.2); BASO % 1.3 % (0.0-1.0); EOS # 0.3 10^3/uL (0.0-0.5); EOS % 6.1 % (0.0-3.0); HEMATOCRIT 41.3 % (42.0-52.0); HEMOGLOBIN 14.7 g/dl (13.5-17.5); LYMPH # 1.4 10^3/uL (1.5-5.0); LYMPH % 30.3 % (24.0-44.0); MEAN CORPUSCULAR HEMOGLOBIN 33.3 pg (27.0-33.0); MEAN CORPUSCULAR HGB CONC 35.6 g/dl (32.0-36.5); MEAN CORPUSCULAR VOLUME 93.4 fl (80.0-96.0); MONO # 0.5 10^3/uL (0.0-0.8); MONO % 10.7 % (0.0-5.0); NEUTROPHILS # 2.4 10^3/uL (1.5-8.5); NEUTROPHILS % 51.2 % (36.0-66.0); PLATELET COUNT, AUTOMATED 142 10^3/uL (150-450); RED BLOOD COUNT 4.42 10^6/uL (4.30-6.10); WHITE BLOOD COUNT 4.8 10^3/uL (4.0-10.0)
[2020-03-06 11:17] LABS: HEMOGLOBIN A1c 5.2 %
[2020-03-06 11:42] LABS: ALBUMIN 3.2 GM/DL (3.2-5.2); ALT/SGPT 114 U/L (12-78); BILIRUBIN,TOTAL 0.9 MG/DL (0.2-1.0); BLOOD UREA NITROGEN 14 MG/DL (7-18); CALCIUM LEVEL 8.1 MG/DL (8.5-10.1); CARBON DIOXIDE LEVEL 23 MEQ/L (21-32); CHLORIDE LEVEL 111 MEQ/L (98-107); FREE T4 1.11 NG/DL (0.76-1.46); FREE THYROXINE INDEX 2.8 % (1.4-3.8); GLOMERULAR FILTRATION RATE > 60.0 (>60); GLUCOSE, FASTING 103 MG/DL (70-100); POTASSIUM SERUM 3.4 MEQ/L (3.5-5.1); SODIUM LEVEL 143 MEQ/L (136-145); T UPTAKE 35 % (33-40); THYROID STIMULATING HORMONE 0.579 uIU/ML (0.358-3.740); TOTAL PROTEIN 6.4 GM/DL (6.4-8.2)
[2020-03-08 10:41] LABS: TOTAL 25(OH) VITAMIN D 34.2 NG/ML (30.0-100.0); VITAMIN B12 LEVEL 475 PG/ML (247-911)
== END ==
LOC: M LAB 10:22
PROVIDERS: ATTEND Psychiatry & Neurology Child & Adolescent Psychiatry

== ENCOUNTER 2020-03-19 13:00 | Outpatient (RCR) | payer MEDICAID | END 2020-04-06 | LOC: M OUTALCOH 13:00 | PROVIDERS: ATTEND Psychiatry & Neurology Addiction Medicine | DX: F10.20 Alcohol dependence, uncomplicated (principal) ==

== ENCOUNTER → 2020-05-12 | Outpatient (REF) | payer OTHER, MEDICAID ==
[~2020-05-12] MED LIST changes: +AMOX500C PO; +ATEN25TA PO; +BUPR75TA5 PO; +CLON-412 PO; +CYCL1CAP5 PO; +METH2.5T48 PO; +NICO21PAT TD; +QUET100T2; +TRAZ300T2 PO; +VITA50005 PO; +VYVA40CA3 PO
[2020-06-10 10:33] LABS: BASO # 0.1 10^3/uL (0.0-0.2); BASO % 1.3 % (0.0-1.0); EOS # 0.3 10^3/uL (0.0-0.5); EOS % 4.3 % (0.0-3.0); HEMATOCRIT 42.9 % (42.0-52.0); HEMOGLOBIN 14.9 g/dl (13.5-17.5); LYMPH # 2.1 10^3/uL (1.5-5.0); LYMPH % 34.2 % (24.0-44.0); MEAN CORPUSCULAR HEMOGLOBIN 33.6 pg (27.0-33.0); MEAN CORPUSCULAR HGB CONC 34.7 g/dl (32.0-36.5); MEAN CORPUSCULAR VOLUME 96.8 fl (80.0-96.0); MONO # 0.7 10^3/uL (0.0-0.8); MONO % 10.9 % (0.0-5.0); NEUTROPHILS % 49.1 % (36.0-66.0); PLATELET COUNT, AUTOMATED 159 10^3/uL (150-450); RED BLOOD COUNT 4.43 10^6/uL (4.30-6.10); WHITE BLOOD COUNT 6.1 10^3/uL (4.0-10.0)
[2020-06-26 11:47] LABS: ALBUMIN 3.7 GM/DL (3.2-5.2); ALT/SGPT 71 U/L (12-78); BLOOD UREA NITROGEN 19 MG/DL (7-18); CALCIUM LEVEL 8.6 MG/DL (8.5-10.1); CARBON DIOXIDE LEVEL 28 MEQ/L (21-32); CHLORIDE LEVEL 108 MEQ/L (98-107); CHOLESTEROL LEVEL 198 MG/DL (<200); CREATININE FOR GFR 1.06 MG/DL (0.70-1.30); GLOMERULAR FILTRATION RATE > 60.0 (>60); GLUCOSE, FASTING 97 MG/DL (70-100); HDL CHOLESTEROL 40 MG/DL (>40); LDL CHOLESTEROL 94 MG/DL (<100); NON-HDL-C 158 MG/DL; SODIUM LEVEL 139 MEQ/L (136-145); TOTAL PROTEIN 6.7 GM/DL (6.4-8.2); TRIGLYCERIDES LEVEL 318 MG/DL (<150)
== END ==
LOC: M LAB REF 09:19
PROVIDERS: ATTEND Nurse Practitioner Family
DX: R74.8 Abnormal levels of other serum enzymes (principal); R03.0 Elevated blood-pressure reading, without diagnosis of hypertension; F10.10 Alcohol abuse, uncomplicated

== ENCOUNTER 2020-06-11 11:54 | Inpatient (IN) | payer MEDICAID, OTHER ==
[~2020-06-11] VITALS: Ht 175.3 cm; Wt 89.1 kg
[~2020-06-11 11:54] MED LIST changes: -AMOX500C PO; -ATEN25TA PO; -BUPR75TA5 PO; -CLON-412 PO; -CYCL1CAP5 PO; -METH2.5T48 PO; -NICO21PAT TD; -QUET100T2; -TRAZ300T2 PO; -VITA50005 PO; -VYVA40CA3 PO
[2020-06-11] MEDS ORDERED: ATEN25TA PO (12:14)
[2020-06-11] MEDS ORDERED: QUET100T2 (12:14)
[2020-06-11] MEDS ORDERED: METH2.5T48 PO (12:14)
[2020-06-11] MEDS ORDERED: AMOX500C PO (12:14)
[2020-06-11] MEDS ORDERED: CLON-412 PO (12:14)
[2020-06-11] MEDS ORDERED: BUPR75TA5 PO (12:14)
[2020-06-11] MEDS ORDERED: CYCL1CAP5 PO (12:14)
[2020-06-11 13:03] LABS: HEMATOCRIT 44.4 % (42.0-52.0); HEMOGLOBIN 15.9 g/dl (13.5-17.5); MEAN CORPUSCULAR HEMOGLOBIN 33.5 pg (27.0-33.0); MEAN CORPUSCULAR HGB CONC 35.8 g/dl (32.0-36.5); MEAN CORPUSCULAR VOLUME 93.5 fl (80.0-96.0); PLATELET COUNT, AUTOMATED 218 10^3/uL (150-450); RED BLOOD COUNT 4.75 10^6/uL (4.30-6.10); WHITE BLOOD COUNT 8.4 10^3/uL (4.0-10.0)
[2020-06-11] MEDS ORDERED: LORazepam 1 MG TAB As Ordered ONE (13:13)
[2020-06-11] MEDS ORDERED: LORazepam 1 MG TAB PO ONE (13:15)
[2020-06-11 13:37] LABS: AMPHETAMINES LEVEL URINE NEGATIVE (NEGATIVE); BARBITURATES URINE NEGATIVE (NEGATIVE); BENZODIAZEPINES URINE NEGATIVE (NEGATIVE); CANNABINOIDS URINE NEGATIVE (NEGATIVE); COCAINE METABOLITE URINE NEGATIVE (NEGATIVE); METHADONE URINE NEGATIVE (NEGATIVE); OPIATES URINE NEGATIVE (NEGATIVE); PHENCYCLIDINE URINE NEGATIVE (NEGATIVE)
[2020-06-11 13:44] LABS: ACETAMINOPHEN LEVEL < 2.0 UG/ML (10.0-30.0); ALBUMIN 4.2 GM/DL (3.2-5.2); ALT/SGPT 73 U/L (12-78); BILIRUBIN,DIRECT 0.3 MG/DL (0.0-0.2); BILIRUBIN,TOTAL 0.8 MG/DL (0.2-1.0); BLOOD UREA NITROGEN 13 MG/DL (7-18); CALCIUM LEVEL 9.4 MG/DL (8.5-10.1); CARBON DIOXIDE LEVEL 23 MEQ/L (21-32); CHLORIDE LEVEL 107 MEQ/L (98-107); CREATININE FOR GFR 1.17 MG/DL (0.70-1.30); ETHYL ALCOHOL (ETHANOL) 0.202 % (0.000-0.010); GLOMERULAR FILTRATION RATE > 60.0 (>60); GLUCOSE, FASTING 73 MG/DL (70-100); POTASSIUM SERUM 4.1 MEQ/L (3.5-5.1); SALICYLATE LEVEL < 1.7 MG/DL (5.0-30.0); SODIUM LEVEL 143 MEQ/L (136-145); THYROID STIMULATING HORMONE 0.894 uIU/ML (0.358-3.740); TOTAL PROTEIN 7.5 GM/DL (6.4-8.2)
[2020-06-11] MEDS ORDERED: LORazepam 1 MG TAB PO STA (14:57)
[2020-06-11] MEDS ORDERED: OXAZEPAM 15 MG CAP PO ONE (18:45)
[2020-06-11] MEDS ORDERED: LORazepam 2 MG/ML VIAL IV STA (20:16)
[2020-06-11] MEDS ORDERED: NS 1,000 ML IV ONE (20:30)
[2020-06-11] MEDS ORDERED: traZODone 50 MG TAB PO PRN (23:00)
[2020-06-11] MEDS ORDERED: ACETAMINOPHEN TAB 650MG DOSE (2X325MG) PO PRN (23:00)
[2020-06-11] MEDS ORDERED: NICOTINE 21MG/24HR 1 EA TRANSDERMAL TD PRN (23:00)
[2020-06-11] MEDS ORDERED: MAALOX 30 ML SUSP *UDC PO PRN (23:00)
[2020-06-11] MEDS ORDERED: LORazepam 2 MG TAB PO PRN (23:00)
[2020-06-11] MEDS ORDERED: MOM 30ML SUSPENSION UDC PO PRN (23:00)
[2020-06-11] MEDS ORDERED: VYVA40CA3 PO (23:31)
[2020-06-11] MEDS ORDERED: TRAZ-257 PO (23:36)
[2020-06-11] MEDS ORDERED: TRAZ300T2 PO (23:36)
[2020-06-11] MEDS ORDERED: VITA50005 PO (23:41)
[2020-06-12 00:46] VITALS: BP 141/100
[2020-06-12 00:47] VITALS: BP 141/100
[2020-06-12] MEDS: THIAMINE 100 MG TAB PO SCH ×3 (02:05→20:58)
[2020-06-12 06:25] VITALS: BP 138/76
[2020-06-12] MEDS ORDERED: INFLUENZA QUADRIVALENT PF VACCINE 0.5ML SYRINGE IM ONE (09:00)
[2020-06-12] MEDS: buPROPion 75 MG TAB PO SCH ×2 (10:22→20:58)
[2020-06-12] MEDS: atenoloL 25 MG TAB PO SCH ×2 (10:22→20:58)
[2020-06-12] MEDS: OLANZapine ORAL DISINTEGRATING TAB 5MG PO PRN (10:23)
[2020-06-12] MEDS: MULTIVITAMINS/MINERALS THERAP 1 TAB PO SCH (10:23)
[2020-06-12] MEDS: FOLIC ACID 1 MG TAB PO SCH (10:23)
[2020-06-12 14:00] VITALS: BP 138/76
[2020-06-12] MEDS: traZODone 100 MG TAB PO PRN (20:58)
[2020-06-13] MEDS: OLANZapine ORAL DISINTEGRATING TAB 5MG PO PRN ×2 (04:23→22:27)
[2020-06-13 06:00] VITALS: BP 138/83
[2020-06-13 06:40] VITALS: BP 138/83
[2020-06-13] MEDS ORDERED: NEORAL 100 MG CAP (J7502) PO SCH (09:00)
--- NOTE | 2020-06-13 09:15 | MHHPE ---
DATE OF ADMISSION: 06/11/2020 VITAL SIGNS: 138/76, pulse 77, temperature 98.8 CHIEF COMPLAINT: Feels depressed. SUBJECTIVE: He is 44 years old, lives in a house with his roommate, says he has his parents as support as well. He is seen at the local clinics. Has had prior hospitalizations, last one was about 4 years ago. He has recently been on Vyvanse, was on it for quite a while for focus and attention, and just recently, within the last week or so, it was discontinued as his clinician, as well as Dr. Rios, hardening machine operator, apparently had concerns, particularly with the patient using alcohol and there was some electrocardiogram (EKG) evidence that he had a recent myocardial infarction, about 6 to 8 weeks ago. It was felt that the atenolol, alcohol and Vyvanse were not a good combination. Since then, says that he noticed the deterioration within a couple of days, felt less focus, became depressed, and started drinking again, within the last couple of days. There were some concerns that he was suicidal. He is vague on this, but apparently per the emergency room records, he was not confident of maintaining his safety over this long weekend, left a message indicating as much with the clinician. Given the above, was brought to the hospital. Says just prior to that, generally been doing well, says he stopped drinking just around a month ago. Says his moods had been good with good appetite. Denies that he had felt suicidal in the past few weeks. PAST PSYCHIATRIC HISTORY: Has had a previous hospitalization on at least one occasion, this was in 2016, the admission summary is reviewed as his background history. He has a history of major depression, possible panic disorder, as well as alcohol use disorder. Currently attends outpatient care at [facility]. MEDICAL HISTORY: Apparently had a myocardial infarction ([place]) within the last 8 weeks or so. SOCIAL HISTORY: Please refer to previous summary. He has been staying at the current place for about 16 years. Says has parents as support as well and he lives with a roommate. MENTAL STATUS EXAMINATION: Somewhat unkempt, cooperative, wears a mask, no agitation, no psychomotor retardation. He is coherent. Affect restricted, but reactive. Denies any suicidal thoughts or intents. No homicidal ideas or intents. No evidence of any psychosis. Cognition grossly intact. Judgment and insight are compromised. ASSESSMENT: 1. Major depressive disorder. 2. Alcohol use disorder. Has been depressed, also possibly minimizing his difficult days. PLAN: Continue current care, he has just been started on Wellbutrin at 75 mg twice a day. This was started when the Vyvanse was discontinued earlier in the week. Will continue the rest of his medications. Will look at obtaining collateral information. We will involve him in activities in the unit as tolerated. He will receive a medicine consulted if indicated. He will be discharged with follow up once he is stable. I would anticipate a 5 to 7 day stay. Further recommendations will be made depending on the clinic picture. It should be noted urine toxicology came in was essentially negative. Alcohol level was 0.2 The assessment took 30 minutes. BIRDD
[2020-06-13] MEDS: atenoloL 25 MG TAB PO SCH ×2 (10:51→22:27)
[2020-06-13] MEDS: buPROPion 75 MG TAB PO SCH ×2 (10:51→22:27)
[2020-06-13] MEDS: FOLIC ACID 1 MG TAB PO SCH (10:52)
[2020-06-13] MEDS: THIAMINE 100 MG TAB PO SCH ×2 (10:52→22:27)
[2020-06-13] MEDS: MULTIVITAMINS/MINERALS THERAP 1 TAB PO SCH (10:52)
[2020-06-13] MEDS ORDERED: METHOTREXATE 2.5 MG TAB (J8610 PER 2.5MG) PO ONE (11:00)
[2020-06-13] MEDS: NEORAL 25 MG CAP (J7515) PO SCH ×2 (12:52→22:26)
[2020-06-13 14:00] VITALS: BP 138/83
[2020-06-13 18:44] VITALS: BP 133/67
[2020-06-13] MEDS: traZODone 100 MG TAB PO PRN (22:28)
[2020-06-14 06:32] VITALS: BP 121/60
[2020-06-14 09:48] VITALS: BP 121/60
[2020-06-14] MEDS: THIAMINE 100 MG TAB PO SCH (09:48)
[2020-06-14] MEDS: NEORAL 25 MG CAP (J7515) PO SCH (09:48)
[2020-06-14] MEDS: atenoloL 25 MG TAB PO SCH (09:48)
[2020-06-14] MEDS: buPROPion 75 MG TAB PO SCH (09:48)
--- NOTE | 2020-06-14 09:54 | MHIPNPDOC ---
[facility] Progress Note Progress Note DATE OF SERVICE: 06/14/20 HISTORY: . VITAL SIGNS: See below. NEW TEST RESULTS: . CURRENT MEDICATIONS: See below. MENTAL STATUS EXAMINATION: Patient is a -year old male, who is . Speech: Is . Language skills are . Thought processes including: . Thought content: . Abstract reasoning, and computation: . Description of associa tions: . Description of abnormal or psychotic thoughts: . Judgment: . Insight: [very limited, good, fair. poor]. Orientation: . Recent and remote memory: . Attention span and concentration: . Language: . Fund of knowledge: . Mood: . Affect: . DIAGNOSES: 1. . 2. . 3. . ASSESSMENT: MANAGEMENT PLAN: . TIME SPENT: minutes. Vital Signs Vital Signs Date Time Temp Pulse Resp B/P (MAP) Pulse Ox O2 Delivery O2 Flow Rate FiO2 06/14/20 09:48 54 121/60 06/14/20 06:32 97.7 18 Room Air 06/12/20 00:47 100 Current Medications Current Medications Medications (Trade) Dose Ordered Sig/Charles Route PRN Reason Start Time Stop Time Status Last Admin Dose Admin Acetaminophen (Tylenol Tab) 650 mg Q6HP PRN PO HEADACHE or DISCOMFORT 06/11/20 23:00 Al Hydrox/Mg Hydrox/Simethicone (Mylanta) 30 ml Q4HP PRN PO HEARTBURN/INDIGESTION 06/11/20 23:00 Atenolol (Tenormin) 25 mg BID PO 06/12/20 09:00 06/14/20 09:48 Bupropion HCl (Wellbutrin) 75 mg BID PO 06/12/20 09:00 06/14/20 09:48 Cyclosporine (Modified) (Neoral) 100 mg BID PO 06/13/20 09:00 06/13/20 10:25 DC Cyclosporine (Modified) (Neoral) 100 mg BID PO 06/13/20 09:00 06/14/20 09:48 Folic Acid (Folic Acid) 1 mg DAILY PO 06/12/20 09:00 06/14/20 00:04 DC 06/13/20 10:52 Home Med (Med Rec Complete!) ASDIRECTED XX 06/11/20 23:45 06/11/20 23:46 DC Lorazepam (Ativan) 1 mg STAT STAT IV 06/11/20 20:16 06/11/20 20:17 DC 06/11/20 20:36 Lorazepam (Ativan) 1 mg STAT STAT PO 06/11/20 14:57 06/11/20 14:58 DC 06/11/20 15:08 Lorazepam (Ativan) 2 mg ASDIRECTED PRN PO SEE PROTOCOL 06/11/20 23:00 06/14/20 00:04 DC 06/12/20 02:05 Magnesium Hydroxide (Milk Of Magnesia) 30 ml DAILYPRN PRN PO CONSTIPATION 06/11/20 23:00 Multivitamins (Theragram-M) 1 tab DAILY PO 06/12/20 09:00 06/14/20 00:04 DC 06/13/20 10:52 Nicotine (Nicoderm Cq 21mg) 1 patch DAILY PRN TD Nicotine withdrawal. 06/11/20 23:00 Olanzapine (ZyPREXA ZYDIS) 5 mg Q4HP PRN PO AGITATION 06/11/20 23:00 06/13/20 22:27 Thiamine HCl (Thiamine HCl) 100 mg BID PO 06/11/20 21:00 06/14/20 09:01 DC 06/14/20 09:48 Trazodone HCl (Desyrel) 50 mg QHSP PRN PO INSOMNIA 06/11/20 23:00 Cancel Trazodone HCl (Desyrel) 100 mg QHS PRN PO INSOMNIA 06/12/20 00:45 06/13/20 22:28 Allergies Coded Allergies: Sulfa (Sulfonamide Antibiotics) (Verified Allergy, Unknown, hives, 06/11/20) carbamazepine (Verified Allergy, Unknown, rash, 06/11/20) FADI VAUGHN DO Jun 14, 2020 09:54
--- NOTE | 2020-06-14 10:26 | MHDSPDOC ---
[facility] Discharge Summary Discharge Summary DATE OF ADMISSION: Jun 11, 2020 at 23:06 DATE OF DISCHARGE: Jun 14, 2020 at 16:00 DISCHARGE DIAGNOSES: F33.8 Other recurrent depressive disorders F10.929 Alcohol use, unspecified with intoxication, unspecified CONSULTANTS INVOLVED:[ None (basic hospitalist screening)] REASON FOR ADMISSION & TREATMENT AND PROGRESS ON THE UNIT : Myles was admitted to the inpatient mental health unit reportedly after being switched from Vyvanse to Wellbutrin. He reportedly had some likely withdrawal side effects displaying some dysphoria and reported suicidal statements. He was brought in and admitted and was subsequently resumed on his home Wellbutrin without any alterations. He did well in the unit, stabilized well, and his dysphoria quickly resolved, suggesting a substance related problem, primarily withdrawal from a stimulant. He reported that after he stopped taking the Vyvanse, he began to drink, that this had contributed to his presentation. The patient requested discharge and was not exhibiting any signs of dangerousness. Patients observations were reviewed with nursing and the treatment team, of which it appeared, that he had done quite well over the weekend and no longer required any significant treatment and could be triage back to outpatient. DISCHARGE ASSESSMENT[improved] Legal status considerations: The patient at the time of discharge did not meet criteria for involuntary admission/extension due to having a [normal] mental status exam, [fair] insight into the situation, They are engaged in the discharge process, as well as being friendly and amenable in behavioral control and havent been engaging in any observed concerning behavior or ideation recently. They decline voluntary extension/admission at this time and must be discharged in good devan, as Im unable to make a case for holding the patient against their will. They may have historical risk factors of admissions and other interactions with psychiatry however, those are not modifiable from a clinical perspective. The patient will need to be discharged in good devan. MENTAL STATUS EXAMINATION ON DISCHARGE: [General: Well dressed with good hygiene Speech: Spontaneous and fluid Thought processes: Linear and logical Thought content: Future orientated Abstract reasoning, and computation: Intact Description of associations: Intact Description of abnormal or psychotic thoughts:Denies any suicidal or homicidal ideation. Denies any auditory or visual hallucinations. Does not appear to be responding to internal stimuli. Does not appear to be endorsing any bizarre or paranoid ideation. Judgment: fair Insight: fair Orientation: Alert and orientated 3 Recent and remote memory: Intact Attention span and concentration: Intact Fund of knowledge: Adequate Mood: "okay" Affect: Euthymic with a full range] PLAN/FOLLOWUP ARRANGEMENTS: Follow up appointments made (PCP and MH in 5 days of D/C date) and safety plan completed. Safety Planning aspects completed prior to discharge [Medication supplies limited to 7 days with 4 refills to prevent accumulation to OD] [Family contact completed, educated on safe practices, instructed on removal and mitigation of dangerous means] [RN reviewed crisis hotline information and other aspects to empower patient to access care in interim before next appointment.] The amount of time spent in the coordination of care for this patient was approximately 30 minutes. Vital Signs/I&Os Vital Signs Date Time Temp Pulse Resp B/P (MAP) Pulse Ox O2 Delivery O2 Flow Rate FiO2 06/14/20 09:48 54 121/60 06/14/20 06:32 97.7 18 Room Air 06/12/20 00:47 100 Medications Scheduled Amoxicillin (Amoxicillin) 500 Mg Capsule, 500 MG PO TID, (Reported) Atenolol (Atenolol) 25 Mg Tablet, 25 MG PO BID, (Reported) Bupropion HCl (Bupropion HCl) 75 Mg Tablet, 75 MG PO BID, (Reported) Clonidine HCl (Clonidine HCl) 0.1 Mg Tablet, 0.1 MG PO BID, (Reported) Cyclosporine, Modified (Cyclosporine Modified) 100 Mg Capsule, 100 MG PO BID, (Reported) Ergocalciferol (Vitamin D2) (Vitamin D2) 50,000 Units Cap, 50,000 UNITS PO 1XWK, (Reported) TAKES ON SUNDAY Methotrexate Sodium (Methotrexate) 2.5 Mg Tablet, 15 MG PO 1XWK, (Reported) TAKES ON SUNDAY Trazodone HCl (Trazodone HCl) 100 Mg Tablet, 100 MG PO QHS for 30 Days, #30 (Reported) TAKE WITH 300MG TABLET FOR TOTAL OF 400MG Trazodone HCl (Trazodone HCl) 300 Mg Tablet, 300 MG PO QHS, (Reported) TAKES WITH 100MG TABLET FOR TOTAL OF 400MG Scheduled PRN Nicotine (Nicotine Patch) 21 Mg Patch.td24, 1 PATCH TD DAILY PRN for Nicotine withdrawal. for 30 Days, #30 Allergies Coded Allergies: Sulfa (Sulfonamide Antibiotics) (Verified Allergy, Unknown, hives, 06/11/20) carbamazepine (Verified Allergy, Unknown, rash, 06/11/20) FDAI VAUGHN DO Jun 14, 2020 10:26
[2020-06-14] MEDS ORDERED: NICO21PAT TD (10:56)
--- NOTE | 2020-06-15 08:06 | CR ---
DATE OF CONSULTATION: 06/12/2020 REASON FOR CONSULTATION: Medical examination. HISTORY OF PRESENT ILLNESS: A 44-year-old male with a history of depression, anxiety, panic disorder, posttraumatic stress disorder (PTSD), attention deficit hyperactivity disorder (ADHD), alcohol abuse, recreational drug use with cocaine, LSD, and marijuana, admitted to the inpatient mental health unit due to recurrent depression, medically being examined today with no acute medical issues. Patient is requesting to obtain his cell phone, but I have indicated that this is up to the psychiatric unit policy. Patient otherwise denies fevers, chills, shortness of breath, chest pain, pressure, or tightness, weight gain, weight loss, nausea, vomiting, diarrhea, abdominal pain, dysuria, urgency, frequency, polyphagia, polyuria, dysphagia, upper gastrointestinal (GI) bleed. No prior history of cerebrovascular accident (CVA), diabetes, hypothyroidism. All other systems negative. MEDICAL HISTORY: 1. Alcohol abuse. 2. ADHD. 3. PTSD. 4. Panic disorder. 5. Depression. 6. Anxiety. 7. Polysubstance abuse with LSD, cocaine, and marijuana. PAST SURGICAL HISTORY: None. ALLERGIES: SULFA, causing rash. HOSPITAL MEDICATIONS: Acetaminophen, atenolol, bupropion, folic acid, Ativan, milk of magnesia, multivitamin, nicotine path, olanzapine, Serax, thiamine, and trazodone. SOCIAL HISTORY: Resides in [place]. with two children. 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 Drinks alcohol, eight drinks a day, vodka, illicit drug use with LSD, cocaine, marijuana. Denies tattoos. FAMILY HISTORY: Unknown. REVIEW OF SYSTEMS: Per history of present illness (HPI). A 12-point system otherwise negative. PHYSICAL EXAMINATION: Temperature 98.8, pulse 77, respiratory rate 18, blood pressure 138/76, 100% on room air. GENERAL: Disheveled. Appears older than his stated age. No respiratory distress. Awake, alert, oriented times three. Anicteric sclerae. No jaundice. Poor dentition. LUNGS: Clear to auscultation. No wheezing, rales, or rhonchi. HEART: S1, S2, sinus rhythm. No murmurs, rubs, or gallops. ABDOMEN: Soft, nontender, nondistended. Positive bowel sounds. EXTREMITIES: No cyanosis, clubbing, or pitting edema. LABORATORY DATA: June 11: White count 8.4, hemoglobin 15, hematocrit 44, platelet count 218. Sodium 143, potassium 4.1, chloride 107, bicarbonate 23, BUN 13, creatinine 1.17, glucose 73, calcium 9.4. AST 31, ALT 73, albumin 4.2. TSH 0.894. ASSESSMENT AND PLAN: A 44-year-old with history of recurrent depression, posttraumatic stress disorder (PTSD), attention deficit hyperactivity disorder (ADHD), panic disorder, alcohol abuse, polysubstance abuse, LSD, cocaine, and marijuana, smoker, admitted to the inpatient mental health unit without any acute medical complaints. Patient is resumed on his home medications. Psychiatric medications to be adjusted by his psychiatrist. Hospitalist will sign off. Re-consult for any acute medical issues. JOSELINE
--- NOTE | 2020-06-15 12:00 | MHIPN ---
DATE: 06/13/2020 VITAL SIGNS: Blood pressure 138/83, pulse 74, temperature 97.6. CHIEF COMPLAINT: Feels better. SUBJECTIVE: Seen in follow-up. Indicates feels better, more optimistic, less anxious, says at times does have a headache. Appetite is fair. Sleep is improved. MENTAL STATUS EXAMINATION: Neat. Cooperative. No agitation. No psychomotor retardation. Coherent. Affect fair range. Denies any suicidal thoughts or intent at present. No evidence at present of any psychosis. Cognition is grossly intact. His judgment is improved. Insight is fair. ASSESSMENT: 1. Major depressive disorder. 2. Alcohol use disorder. 3. Somewhat less depressed and anxious. PLAN: Continue Wellbutrin 75 mg twice a day. May need to consider, in the near future, increasing it. The Wellbutrin essentially replaced the Vyvanse, which he was on until almost a week ago, and then it was discontinued. Sees Dr. Rios (cardiology). He is also on Methotrexate and Cyclosporine for psoriasis, arthritis. He is to be encouraged to participate in activities in the unit. Should this improve and continue, would anticipate patient being discharged within the next 48 to 72 hours. JOSELINE
== END 2020-06-14 16:00 | disposition home or self-care (01) | DRG 753 ==
LOC: M ED 11:54 → M ED INP 23:06 → M PSY 06-12 00:06
PROVIDERS: ADMIT Psychiatry & Neurology Psychiatry; ATTEND Psychiatry & Neurology Addiction Medicine
DX: F33.8 Other recurrent depressive disorders (principal); F10.929 Alcohol use, unspecified with intoxication, unspecified; Z88.2 Allergy status to sulfonamides; Z88.8 Allergy status to other drugs, medicaments and biological substances; Z79.899 Other long term (current) drug therapy

== ENCOUNTER → 2020-07-05 | Outpatient (CLI) | payer OTHER ==
[~2020-07-05] MED LIST changes: +AMOX500C PO; +ATEN25TA PO; +BUPR75TA5 PO; +CLON-412 PO; +CYCL1CAP5 PO; +METH2.5T48 PO; +NICO21PAT TD; +QUET100T2; +TRAZ300T2 PO; +VITA50005 PO; +VYVA40CA3 PO
--- NOTE | 2020-07-11 18:35 | SLEEPHOME ---
DATE: 07/05/2020 ORDERED BY: Cece Hylton Diagnostic home sleep testing was performed in light of concern for the obstructive sleep apnea syndrome in this patient with nonrestorative sleep. There was 9 hours and 59 minutes of data reviewed. There was 4 hours and 57 minutes marked as time in bed. During the interval marked time in bed, there were only 12 respiratory events identified of 10 seconds in duration or greater for a respiratory event index of 2.4. The events were various description. Baseline pulse rate 64. Pulse rate ranged 51-84. Baseline saturation 92%. On one occasion the saturation briefly dropped below 90%. This may have been artifactual. Testing was performed in both the supine and nonsupine positions. IMPRESSION: Normal diagnostic home sleep test. [facility]
== END ==
LOC: M SLEEP HO 11:43
PROVIDERS: ATTEND Nurse Practitioner Adult Health
DX: G47.30 Sleep apnea, unspecified (principal)

== ENCOUNTER → 2020-07-22 | Outpatient (CLI) | payer OTHER ==
[2020-07-22 12:42] LABS: BASO # 0.1 10^3/uL (0.0-0.2); EOS # 0.4 10^3/uL (0.0-0.5); EOS % 6.6 % (0.0-3.0); HEMATOCRIT 38.8 % (42.0-52.0); HEMOGLOBIN 13.2 g/dl (13.5-17.5); LYMPH # 1.5 10^3/uL (1.5-5.0); LYMPH % 26.2 % (24.0-44.0); MEAN CORPUSCULAR HEMOGLOBIN 31.8 pg (27.0-33.0); MEAN CORPUSCULAR VOLUME 93.5 fl (80.0-96.0); MONO # 0.5 10^3/uL (0.0-0.8); MONO % 8.8 % (0.0-5.0); NEUTROPHILS # 3.3 10^3/uL (1.5-8.5); NEUTROPHILS % 56.9 % (36.0-66.0); PLATELET COUNT, AUTOMATED 141 10^3/uL (150-450); RED BLOOD COUNT 4.15 10^6/uL (4.30-6.10); WHITE BLOOD COUNT 5.8 10^3/uL (4.0-10.0)
[2020-07-22 13:12] LABS: ALBUMIN 3.5 GM/DL (3.2-5.2); ALT/SGPT 129 U/L (12-78); BILIRUBIN,TOTAL 1.2 MG/DL (0.2-1.0); BLOOD UREA NITROGEN 17 MG/DL (7-18); CALCIUM LEVEL 8.5 MG/DL (8.5-10.1); CARBON DIOXIDE LEVEL 28 MEQ/L (21-32); CHLORIDE LEVEL 109 MEQ/L (98-107); CREATININE FOR GFR 1.15 MG/DL (0.70-1.30); GLOMERULAR FILTRATION RATE > 60.0 (>60); GLUCOSE, FASTING 126 MG/DL (70-100); POTASSIUM SERUM 3.9 MEQ/L (3.5-5.1); SODIUM LEVEL 143 MEQ/L (136-145); TOTAL PROTEIN 6.3 GM/DL (6.4-8.2)
== END ==
LOC: M LAB 11:24
PROVIDERS: ATTEND Dermatology
DX: L20.81 Atopic neurodermatitis (principal)

== ENCOUNTER → 2020-08-23 | Outpatient (REF) | payer OTHER ==
[2020-08-23 18:06] LABS: ALBUMIN 3.7 GM/DL (3.2-5.2); ALT/SGPT 96 U/L (12-78); BILIRUBIN,TOTAL 1.1 MG/DL (0.2-1.0); BLOOD UREA NITROGEN 16 MG/DL (7-18); CALCIUM LEVEL 9.2 MG/DL (8.5-10.1); CARBON DIOXIDE LEVEL 29 MEQ/L (21-32); CHLORIDE LEVEL 108 MEQ/L (98-107); CHOLESTEROL LEVEL 206 MG/DL (<200); CHOLESTEROL RISK RATIO 3.614 (<5); CREATININE FOR GFR 1.03 MG/DL (0.70-1.30); GLOMERULAR FILTRATION RATE > 60.0 (>60); GLUCOSE, FASTING 90 MG/DL (70-100); HDL CHOLESTEROL 57 MG/DL (>40); LDL CHOLESTEROL 115 MG/DL (<100); NON-HDL-C 149 MG/DL; POTASSIUM SERUM 4.1 MEQ/L (3.5-5.1); SODIUM LEVEL 142 MEQ/L (136-145); TOTAL PROTEIN 6.7 GM/DL (6.4-8.2); TRIGLYCERIDES LEVEL 172 MG/DL (<150)
[2020-08-23 18:15] LABS: BASO # 0.1 10^3/uL (0.0-0.2); BASO % 1.7 % (0.0-1.0); EOS # 0.2 10^3/uL (0.0-0.5); EOS % 3.9 % (0.0-3.0); HEMATOCRIT 41.8 % (42.0-52.0); HEMOGLOBIN 14.2 g/dl (13.5-17.5); LYMPH # 1.7 10^3/uL (1.5-5.0); MEAN CORPUSCULAR HEMOGLOBIN 32.2 pg (27.0-33.0); MEAN CORPUSCULAR VOLUME 94.8 fl (80.0-96.0); MONO # 0.5 10^3/uL (0.0-0.8); MONO % 10.9 % (0.0-5.0); NEUTROPHILS % 44.2 % (36.0-66.0); PLATELET COUNT, AUTOMATED 182 10^3/uL (150-450); RED BLOOD COUNT 4.41 10^6/uL (4.30-6.10); WHITE BLOOD COUNT 4.6 10^3/uL (4.0-10.0)
== END ==
LOC: M LAB REF 16:34
PROVIDERS: ATTEND Nurse Practitioner Family
DX: R74.8 Abnormal levels of other serum enzymes (principal); R00.0 Tachycardia, unspecified; R03.0 Elevated blood-pressure reading, without diagnosis of hypertension; G47.00 Insomnia, unspecified

== ENCOUNTER → 2020-10-11 | Outpatient (REF) | payer OTHER | LOC: M LAB REF 16:33 | PROVIDERS: ATTEND Physician Assistant Medical | DX: J06.9 Acute upper respiratory infection, unspecified (principal) ==

== ENCOUNTER → 2020-12-16 | Outpatient (REF) | payer OTHER ==
[2020-12-16 12:33] LABS: BASO # 0.1 10^3/uL (0.0-0.2); BASO % 1.4 % (0.0-1.0); EOS # 0.3 10^3/uL (0.0-0.5); EOS % 5.7 % (0.0-3.0); HEMATOCRIT 44.3 % (42.0-52.0); HEMOGLOBIN 15.6 g/dl (13.5-17.5); LYMPH # 1.5 10^3/uL (1.5-5.0); LYMPH % 29.9 % (24.0-44.0); MEAN CORPUSCULAR HEMOGLOBIN 32.8 pg (27.0-33.0); MEAN CORPUSCULAR HGB CONC 35.2 g/dl (32.0-36.5); MEAN CORPUSCULAR VOLUME 93.1 fl (80.0-96.0); MONO # 0.4 10^3/uL (0.0-0.8); MONO % 8.5 % (2.0-8.0); NEUTROPHILS # 2.7 10^3/uL (1.5-8.5); NEUTROPHILS % 54.1 % (36.0-66.0); PLATELET COUNT, AUTOMATED 202 10^3/uL (150-450); RED BLOOD COUNT 4.76 10^6/uL (4.30-6.10)
[2020-12-16 12:46] LABS: ALBUMIN 4.2 GM/DL (3.2-5.2); ALT/SGPT 104 U/L (12-78); BILIRUBIN,TOTAL 1.1 MG/DL (0.2-1.0); BLOOD UREA NITROGEN 12 MG/DL (7-18); CALCIUM LEVEL 9.3 MG/DL (8.5-10.1); CARBON DIOXIDE LEVEL 27 MEQ/L (21-32); CHLORIDE LEVEL 108 MEQ/L (98-107); CHOLESTEROL LEVEL 196 MG/DL (<200); CHOLESTEROL RISK RATIO 3.769 (<5); CREATININE FOR GFR 1.12 MG/DL (0.70-1.30); GLOMERULAR FILTRATION RATE > 60.0 (>60); GLUCOSE, FASTING 107 MG/DL (70-100); HDL CHOLESTEROL 52 MG/DL (>40); LDL CHOLESTEROL 120 MG/DL (<100); NON-HDL-C 144 MG/DL; POTASSIUM SERUM 4.4 MEQ/L (3.5-5.1); SODIUM LEVEL 140 MEQ/L (136-145); TOTAL PROTEIN 7.1 GM/DL (6.4-8.2); TRIGLYCERIDES LEVEL 120 MG/DL (<150)
== END ==
LOC: M LAB REF 12:09
PROVIDERS: ATTEND Nurse Practitioner Family
DX: E78.5 Hyperlipidemia, unspecified (principal)

== ENCOUNTER → 2021-04-06 | Outpatient (REF) | payer OTHER ==
[~2021-04-06] MED LIST changes: +ERGO500029 PO; -VITA50005 PO
[2021-04-06 17:53] LABS: BASO # 0.1 10^3/uL (0.0-0.2); BASO % 1.6 % (0.0-1.0); EOS # 0.5 10^3/uL (0.0-0.5); HEMATOCRIT 47.6 % (42.0-52.0); HEMOGLOBIN 16.6 g/dl (13.5-17.5); LYMPH # 2.3 10^3/uL (1.5-5.0); LYMPH % 39.5 % (24.0-44.0); MEAN CORPUSCULAR HEMOGLOBIN 32.2 pg (27.0-33.0); MEAN CORPUSCULAR HGB CONC 34.9 g/dl (32.0-36.5); MEAN CORPUSCULAR VOLUME 92.4 fl (80.0-96.0); MONO # 0.6 10^3/uL (0.0-0.8); MONO % 10.2 % (2.0-8.0); NEUTROPHILS # 2.3 10^3/uL (1.5-8.5); NEUTROPHILS % 39.4 % (36.0-66.0); PLATELET COUNT, AUTOMATED 210 10^3/uL (150-450); RED BLOOD COUNT 5.15 10^6/uL (4.30-6.10); WHITE BLOOD COUNT 5.8 10^3/uL (4.0-10.0)
[2021-04-06 18:18] LABS: HEMOGLOBIN A1c 5.1 %
[2021-04-06 18:24] LABS: ALBUMIN 3.7 GM/DL (3.2-5.2); ALT/SGPT 220 U/L (12-78); BILIRUBIN,TOTAL 0.9 MG/DL (0.2-1.0); BLOOD UREA NITROGEN 13 MG/DL (7-18); CARBON DIOXIDE LEVEL 23 MEQ/L (21-32); CHLORIDE LEVEL 109 MEQ/L (98-107); CHOLESTEROL LEVEL 215 MG/DL (<200); CHOLESTEROL RISK RATIO 5.972 (<5); CREATININE FOR GFR 0.98 MG/DL (0.70-1.30); FREE T4 1.13 NG/DL (0.76-1.46); GLOMERULAR FILTRATION RATE > 60.0 (>60); GLUCOSE, FASTING 96 MG/DL (70-100); HDL CHOLESTEROL 36 MG/DL (>40); LDL CHOLESTEROL 126 MG/DL (<100); NON-HDL-C 179 MG/DL; POTASSIUM SERUM 4.6 MEQ/L (3.5-5.1); SODIUM LEVEL 140 MEQ/L (136-145); THYROID STIMULATING HORMONE 0.658 uIU/ML (0.358-3.740); TRIGLYCERIDES LEVEL 264 MG/DL (<150)
[2021-04-06 18:26] LABS: TOTAL 25(OH) VITAMIN D 23.4 NG/ML (30.0-100.0)
[2021-04-06 18:27] LABS: FOLATE 8.7 NG/ML; VITAMIN B12 LEVEL 635 PG/ML
== END ==
LOC: M LAB REF 17:28
PROVIDERS: ATTEND Nurse Practitioner Family
DX: R94.5 Abnormal results of liver function studies (principal); R73.03 Prediabetes; F10.20 Alcohol dependence, uncomplicated

== ENCOUNTER → 2021-06-28 | Outpatient (CLI) | payer OTHER ==
--- NOTE | 2021-06-28 08:31 | REP ---
INDICATION: ABN LABS. COMPARISON: 10/15/2018. TECHNIQUE: Real-time sonographic evaluation of right upper quadrant performed. FINDINGS: Mobile gallstones are seen in the gallbladder. There is no gallbladder wall thickening or pericholecystic fluid.. There is no intrahepatic or extrahepatic biliary dilatation, common bile duct measures 3 mm in maximum diameter. There is heterogeneous increased echotexture of the liver diffusely compatible with diffuse fibrofatty infiltration. Length of the liver is 17.8 cm, slightly enlarged. No liver mass is seen. Pancreas is not well seen due to overlying bowel gas, visualized portions are grossly unremarkable. The right kidney demonstrates no hydronephrosis, with a normal size of 11.6 cm in length. No free fluid is seen. IMPRESSION: Mobile gallstones in the gallbladder with no evidence of gallbladder wall thickening or pericholecystic fluid. No biliary dilatation. Diffuse fibrofatty infiltration and mild hepatomegaly, with no gross mass. <Electronically signed by Adarsh Perez > 06/28/21 0813
== END ==
LOC: M RAD 06:29
PROVIDERS: ATTEND Nurse Practitioner Family
DX: R74.01 Elevation of levels of liver transaminase levels (principal)

== ENCOUNTER 2021-09-26 14:49 | Emergency (ER) | payer OTHER ==
[~2021-09-26] VITALS: Ht 175.3 cm; Wt 93.2 kg
[2021-09-26 17:32] LABS: BASO # 0.1 10^3/uL (0.0-0.2); BASO % 1.4 % (0.0-1.0); EOS # 0.5 10^3/uL (0.0-0.5); EOS % 7.1 % (0.0-3.0); HEMATOCRIT 49.6 % (42.0-52.0); HEMOGLOBIN 17.1 g/dl (13.5-17.5); LYMPH # 2.4 10^3/uL (1.5-5.0); MEAN CORPUSCULAR HEMOGLOBIN 32.1 pg (27.0-33.0); MEAN CORPUSCULAR HGB CONC 34.5 g/dl (32.0-36.5); MEAN CORPUSCULAR VOLUME 93.1 fl (80.0-96.0); MONO # 0.6 10^3/uL (0.0-0.8); NEUTROPHILS # 3.4 10^3/uL (1.5-8.5); NEUTROPHILS % 48.2 % (36.0-66.0); PLATELET COUNT, AUTOMATED 215 10^3/uL (150-450); RED BLOOD COUNT 5.33 10^6/uL (4.30-6.10)
[2021-09-26] MEDS ORDERED: ISOVUE-370 76% 100ML VIAL As Ordered ONE (17:50)
[2021-09-26 18:20] LABS: ALT/SGPT 258 U/L (12-78); BILIRUBIN,DIRECT 0.2 MG/DL (0.0-0.2); LIPASE 69 U/L (73-393); TOTAL PROTEIN 7.5 GM/DL (6.4-8.2)
--- NOTE | 2021-09-26 19:06 | REPVR ---
PROCEDURE INFORMATION: Exam: CT Abdomen And Pelvis With Contrast Exam date and time: 09/26/2021 5:01 PM Age: 46 years old Clinical indication: Abdominal pain TECHNIQUE: Imaging protocol: Computed tomography of the abdomen and pelvis with contrast. Radiation optimization: All CT scans at this facility use at least one of these dose optimization techniques: automated exposure control; mA and/or kV adjustment per patient size (includes targeted exams where dose is matched to clinical indication); or iterative reconstruction. Contrast material: ISOVUE 370; Contrast volume: 100 ml; Contrast route: INTRAVENOUS (IV); COMPARISON: CT ABD/PEL W/IV CONTRAST ONLY 10/15/2018 10:32 PM FINDINGS: Liver: There is a diffuse decrease in hepatic parenchymal density, consistent with steatosis. Clinical correlation to exclude acute steatohepatitis suggested. Gallbladder and bile ducts: Tiny densities demonstrated along the gallbladder wall most pronounced in the gallbladder neck may indicate presence of polyps or gravel. No gallbladder wall thickening or pericholecystic fluid to suggest cholecystitis. Pancreas: Normal. No ductal dilation. Spleen: Normal. No splenomegaly. Adrenal glands: Interval increase in the size of a right adrenal lipoma now measuring 1.5 cm. No aggressive features demonstrated. Left adrenal gland is normal. Kidneys and ureters: 10 mm simple cyst left kidney. No follow-up suggested. Punctate nonobstructive calculus lower pole right kidney. Stomach and bowel: Mild diverticulosis is present in the distal colon. No diverticulitis. Appendix: The retrocecal appendix is within normal limits. There is no appendiceal enlargement, periappendiceal inflammatory changes or abscess. Intraperitoneal space: Unremarkable. No free air. No significant fluid collection. Vasculature: Unremarkable. No abdominal aortic aneurysm. Lymph nodes: Unremarkable. No enlarged lymph nodes. Urinary bladder: Unremarkable as visualized. Reproductive: Unremarkable as visualized. Bones/joints: There is a grade 1/2 anterior spondylolisthesis of L5 on S1 secondary to bilateral L5 spondylolysis. Soft tissues: Small umbilical hernia with inflammatory changes demonstrated around the periumbilical soft tissues. Clinical correlation to exclude acute inflammation and incarceration suggested. IMPRESSION: 1. There is a grade 1/2 anterior spondylolisthesis of L5 on S1 secondary to bilateral L5 spondylolysis. 2. There is a diffuse decrease in hepatic parenchymal density, consistent with steatosis. Clinical correlation to exclude acute steatohepatitis suggested. 3. Tiny densities demonstrated along the gallbladder wall most pronounced in the gallbladder neck may indicate presence of polyps or gravel. No gallbladder wall thickening or pericholecystic fluid to suggest cholecystitis. 4. Punctate nonobstructive calculus lower pole right kidney. 5. Interval increase in the size of a right adrenal lipoma now measuring 1.5 cm. No aggressive features demonstrated. 6. Small umbilical hernia with inflammatory changes demonstrated around the periumbilical soft tissues. Clinical correlation to exclude acute inflammation and incarceration suggested. 7. Mild diverticulosis is present in the distal colon. No diverticulitis. 8. The retrocecal appendix is within normal limits. There is no appendiceal enlargement, periappendiceal inflammatory changes or abscess. COMMENTS: Consistent with the [employer]'s Incidental Findings Committee white paper (J Am Kayy Radiol 2018): Any incidental renal lesion less than 1 cm or classified as too small to characterize, or any incidental cystic renal lesion characterized as simple-appearing, is likely benign. No follow-up imaging is recommended for these lesions per consensus recommendations based on imaging criteria. Electronically signed by: Jovon Calhoun On 09/26/2021 19:06:12 PM
[2021-09-26 20:43] LABS: HEPATITIS B SURFACE ANTIGEN NEGATIVE (NEGATIVE)
[2021-09-26] MEDS ORDERED: OMEP40CA4 PO (21:02)
[2021-09-26] MEDS ORDERED: OMEPRAZOLE 20 MG CAP PO ONE (21:05)
[2021-09-26 21:10] VITALS: BP 135/84
[2021-09-26 21:10] LABS: HEPATITIS C VIRUS ABY INDEX 0.1 INDEX (<0.8)
[2021-09-26 21:11] LABS: HEPATITIS B CORE ANTIBODY IGM NEGATIVE (NEGATIVE)
== END 2021-09-26 21:47 | disposition home or self-care (01) ==
LOC: M ED 14:49
DX: N20.0 Calculus of kidney (principal); E88.89 Other specified metabolic disorders; K82.4 Cholesterolosis of gallbladder; K42.9 Umbilical hernia without obstruction or gangrene; K21.9 Gastro-esophageal reflux disease without esophagitis; Z79.899 Other long term (current) drug therapy; Z88.1 Allergy status to other antibiotic agents; Z88.2 Allergy status to sulfonamides; Z88.8 Allergy status to other drugs, medicaments and biological substances
CPT/HCPCS: 36415; 74177; 80047; 80076; 83690; 85025; 86705; 86709; 86803; 87340; 99284; Q9967

== ENCOUNTER → 2022-05-26 | Outpatient (CLI) | payer OTHER ==
[~2022-05-26] MED LIST changes: +ADDE30CA3 PO; +AMBI10TA PO; +BUSP30TA PO; +CIPR500T39 PO; +FLOM0.4C39 PO; +HYDR-3713 PO; +OMEP40CA4 PO
[2022-05-26 16:01] LABS: HEMATOCRIT 48.1 % (42.0-52.0); HEMOGLOBIN 17.2 g/dl (13.5-17.5); MEAN CORPUSCULAR HEMOGLOBIN 33.7 pg (27.0-33.0); MEAN CORPUSCULAR HGB CONC 35.8 g/dl (32.0-36.5); MEAN CORPUSCULAR VOLUME 94.3 fl (80.0-96.0); PLATELET COUNT, AUTOMATED 178 10^3/uL (150-450); WHITE BLOOD COUNT 6.9 10^3/uL (4.0-10.0)
[2022-05-26 16:28] LABS: ALBUMIN 3.4 GM/DL (3.2-5.2); ALT/SGPT 96 U/L (12-78); BLOOD UREA NITROGEN 11 MG/DL (7-18); CALCIUM LEVEL 8.9 MG/DL (8.5-10.1); CARBON DIOXIDE LEVEL 26 MEQ/L (21-32); CHLORIDE LEVEL 106 MEQ/L (98-107); CHOLESTEROL LEVEL 192 MG/DL (<200); CREATININE FOR GFR 0.85 MG/DL (0.70-1.30); FREE T4 1.26 NG/DL (0.76-1.46); GLOMERULAR FILTRATION RATE > 60.0 (>60); GLUCOSE, FASTING 119 MG/DL (70-100); HDL CHOLESTEROL 40 MG/DL (>40); LDL CHOLESTEROL 128 MG/DL (<100); MAGNESIUM LEVEL 1.6 MG/DL (1.8-2.4); NON-HDL-C 152 MG/DL; POTASSIUM SERUM 3.5 MEQ/L (3.5-5.1); SODIUM LEVEL 136 MEQ/L (136-145); THYROID STIMULATING HORMONE 0.577 uIU/ML (0.358-3.740); TOTAL PROTEIN 6.9 GM/DL (6.4-8.2); TRIGLYCERIDES LEVEL 119 MG/DL (<150)
== END ==
LOC: M LAB 14:35
PROVIDERS: ATTEND Physician Assistant
DX: R00.2 Palpitations (principal); E78.2 Mixed hyperlipidemia

== ENCOUNTER 2022-06-19 02:26 | Emergency (ER) | payer OTHER, MEDICAID ==
[~2022-06-19] VITALS: Ht 175.3 cm; Wt 97.7 kg
[~2022-06-19 02:26] MED LIST changes: -ADDE30CA3 PO; -AMBI10TA PO; -BUSP30TA PO; -CIPR500T39 PO; -FLOM0.4C39 PO; -HYDR-3713 PO
[2022-06-19] MEDS ORDERED: BUSP30TA PO (02:36)
[2022-06-19] MEDS ORDERED: AMBI10TA PO (02:36)
[2022-06-19] MEDS ORDERED: ADDE30CA3 PO (02:36)
[2022-06-19] MEDS ORDERED: ONDANSETRON 4MG 2ML VIAL IV ONE (06:25)
[2022-06-19] MEDS ORDERED: NS 1,000 ML IV ONE (06:25)
[2022-06-19 07:12] LABS: BASO # 0.1 10^3/uL (0.0-0.2); BASO % 0.7 % (0.0-1.0); EOS % 0.3 % (0.0-3.0); HEMOGLOBIN 16.4 g/dl (13.5-17.5); LYMPH # 1.4 10^3/uL (1.5-5.0); LYMPH % 14.4 % (24.0-44.0); MEAN CORPUSCULAR HEMOGLOBIN 33.7 pg (27.0-33.0); MEAN CORPUSCULAR HGB CONC 35.7 g/dl (32.0-36.5); MEAN CORPUSCULAR VOLUME 94.7 fl (80.0-96.0); MONO % 9.9 % (2.0-8.0); NEUTROPHILS # 7.1 10^3/uL (1.5-8.5); NEUTROPHILS % 74.3 % (36.0-66.0); PLATELET COUNT, AUTOMATED 210 10^3/uL (150-450); RED BLOOD COUNT 4.86 10^6/uL (4.30-6.10); WHITE BLOOD COUNT 9.6 10^3/uL (4.0-10.0)
[2022-06-19 08:04] LABS: ALBUMIN 3.6 GM/DL (3.2-5.2); ALT/SGPT 118 U/L (12-78); BILIRUBIN,DIRECT 0.6 MG/DL (0.0-0.2); BILIRUBIN,TOTAL 2.6 MG/DL (0.2-1.0); BLOOD UREA NITROGEN 11 MG/DL (7-18); CALCIUM LEVEL 9.9 MG/DL (8.5-10.1); CARBON DIOXIDE LEVEL 23 MEQ/L (21-32); CHLORIDE LEVEL 106 MEQ/L (98-107); CREATININE FOR GFR 1.33 MG/DL (0.70-1.30); ETHYL ALCOHOL (ETHANOL) < 0.003 % (0.000-0.010); GLOMERULAR FILTRATION RATE > 60.0 (>60); GLUCOSE, FASTING 132 MG/DL (70-100); LIPASE 120 U/L (73-393); POTASSIUM SERUM 3.8 MEQ/L (3.5-5.1); SODIUM LEVEL 139 MEQ/L (136-145); TOTAL PROTEIN 7.3 GM/DL (6.4-8.2)
[2022-06-19] MEDS ORDERED: NORCO, ANEXSIA 5/325MG TABLET (HYDROcodone/ACETAMINOPHEN) PO ONE (09:50)
[2022-06-19] MEDS ORDERED: TAMSULOSIN 0.4 MG CAP PO ONE (09:50)
[2022-06-19] MEDS ORDERED: HYDR-3713 PO (10:00)
[2022-06-19] MEDS ORDERED: CIPR500T39 PO (10:00)
[2022-06-19] MEDS ORDERED: FLOM0.4C39 PO (10:00)
[2022-06-19 10:15] VITALS: BP 148/100
== END 2022-06-19 10:17 | disposition home or self-care (01) ==
LOC: M ED 02:26 → EDBD 02:26 → M ED 10:17
DX: N20.1 Calculus of ureter (principal); K80.20 Calculus of gallbladder without cholecystitis without obstruction; Z79.899 Other long term (current) drug therapy
CPT/HCPCS: 74176; 76705; 76857; 80048; 80076; 81000; 82077; 83690; 85025; 87086; 93041; 96374; 99284; J2405

== ENCOUNTER → 2022-06-28 | Outpatient (CLI) | payer OTHER ==
[~2022-06-28] MED LIST changes: +ADDE30CA3 PO; +AMBI10TA PO; +BUSP30TA PO; +CIPR500T39 PO; +FLOM0.4C39 PO; +HYDR-3713 PO
== END ==
LOC: M PLAIMG 13:38
PROVIDERS: ATTEND Physician Assistant
DX: N20.0 Calculus of kidney (principal)

== ENCOUNTER → 2022-07-13 | Outpatient (CLI) | payer OTHER | LOC: M LABSMTC 09:25 | PROVIDERS: ATTEND Anesthesiology | DX: Z01.812 Encounter for preprocedural laboratory examination (principal); Z20.822 Contact with and (suspected) exposure to COVID-19 ==

== ENCOUNTER 2022-07-18 09:30 | Day surgery (SDC) | payer OTHER ==
[~2022-07-18] VITALS: Ht 175.3 cm; Wt 97.0 kg
[~2022-07-18 09:30] MED LIST changes: +NS 1,000 ML IV ONE
[2022-07-18] MEDS ORDERED: propofoL 500 MG/50 ML VIAL As Ordered ONE (09:42)
[2022-07-18 12:25] VITALS: BP 132/83
== END 2022-07-18 13:01 | disposition home or self-care (01) ==
LOC: M OPP 09:30
PROVIDERS: ATTEND Internal Medicine Gastroenterology
DX: K57.30 Diverticulosis of large intestine without perforation or abscess without bleeding (principal); K64.4 Residual hemorrhoidal skin tags; K64.8 Other hemorrhoids; K63.89 Other specified diseases of intestine; R19.4 Change in bowel habit; K21.00 Gastro-esophageal reflux disease with esophagitis, without bleeding; K22.2 Esophageal obstruction; K29.70 Gastritis, unspecified, without bleeding; Z79.2 Long term (current) use of antibiotics; Z79.899 Other long term (current) drug therapy; Z88.2 Allergy status to sulfonamides; Z88.8 Allergy status to other drugs, medicaments and biological substances; I10 Essential (primary) hypertension; K74.60 Unspecified cirrhosis of liver; F90.9 Attention-deficit hyperactivity disorder, unspecified type; F41.9 Anxiety disorder, unspecified; F32.9 Major depressive disorder, single episode, unspecified; Z86.73 Personal history of transient ischemic attack (TIA), and cerebral infarction without residual deficits

== ENCOUNTER → 2022-07-21 | Outpatient (CLI) | payer OTHER ==
[~2022-07-21] MED LIST changes: -NS 1,000 ML IV ONE
== END ==
LOC: M RAD 06:51
PROVIDERS: ATTEND Physician Assistant Medical
DX: K76.0 Fatty (change of) liver, not elsewhere classified (principal); K80.20 Calculus of gallbladder without cholecystitis without obstruction; R16.0 Hepatomegaly, not elsewhere classified; R94.5 Abnormal results of liver function studies

== ENCOUNTER → 2022-12-14 | Outpatient (CLI) | payer OTHER ==
[~2022-12-14] MED LIST changes: +ATOR40TA75 PO; +PANT40TA29 PO; +RA N1TAB PO; +medical marijuana
== END ==
LOC: M LABSMTC 09:23
PROVIDERS: ATTEND Anesthesiology
DX: Z01.812 Encounter for preprocedural laboratory examination (principal); Z20.822 Contact with and (suspected) exposure to COVID-19

== ENCOUNTER 2022-12-19 12:05 | Day surgery (SDC) | payer OTHER ==
[~2022-12-19] VITALS: Ht 175.3 cm; Wt 90.3 kg
[~2022-12-19 12:05] MED LIST changes: +NS 1,000 ML IV ONE
[2022-12-19] MEDS ORDERED: propofoL 200 MG/20 ML VIAL As Ordered ONE ×2 (14:13→14:22)
[2022-12-19] MEDS ORDERED: LIDOCAINE 2% 100MG/5ML SDV (FOR ANES.) As Ordered ONE (14:13)
[2022-12-19] MEDS ORDERED: fentaNYL 100 MCG/2 ML INJECTION As Ordered ONE (14:13)
[2022-12-19 14:42] VITALS: BP 112/76
== END 2022-12-19 15:02 | disposition home or self-care (01) ==
LOC: M OPP 12:05
PROVIDERS: ATTEND Internal Medicine Gastroenterology
DX: K21.00 Gastro-esophageal reflux disease with esophagitis, without bleeding (principal); K29.70 Gastritis, unspecified, without bleeding; K22.2 Esophageal obstruction; Q39.4 Esophageal web; F32.9 Major depressive disorder, single episode, unspecified; F41.9 Anxiety disorder, unspecified; Z87.442 Personal history of urinary calculi; Z79.02 Long term (current) use of antithrombotics/antiplatelets; Z79.899 Other long term (current) drug therapy; Z88.2 Allergy status to sulfonamides; Z88.8 Allergy status to other drugs, medicaments and biological substances
CPT/HCPCS: 43239; 88305; J3010

== ENCOUNTER → 2023-04-02 | Outpatient (REF) | payer OTHER ==
[~2023-04-02] MED LIST changes: -NS 1,000 ML IV ONE
[2023-04-02 13:55] LABS: ALBUMIN 3.5 G/DL (3.2-5.2); ALKALINE PHOSPHATASE 146 U/L (46-116); ALT/SGPT 51 U/L (7.0-40); AST/SGOT 25 U/L (<34); BILIRUBIN,TOTAL 0.4 MG/DL (0.3-1.2); BLOOD UREA NITROGEN 9 MG/DL (9-23); CALCIUM LEVEL 8.9 MG/DL (8.5-10.1); CARBON DIOXIDE LEVEL 24 MMOL/L (20-31); CHLORIDE LEVEL 107 MMOL/L (98-107); CHOLESTEROL LEVEL 176 MG/DL (<200); CHOLESTEROL RISK RATIO 3.45 (<5); CREATININE FOR GFR 0.75 MG/DL (0.70-1.30); GLOMERULAR FILTRATION RATE > 60.0 (>60); GLUCOSE, FASTING 101 MG/DL (60-100); HDL CHOLESTEROL 50.9 MG/DL (>40); LDL CHOLESTEROL 92.1 MG/DL (<100); NON-HDL-C 125.1 MG/DL; POTASSIUM SERUM 3.6 MMOL/L (3.5-5.1); SODIUM LEVEL 138 MMOL/L (136-145); TOTAL PROTEIN 6.6 G/DL (5.7-8.2); TRIGLYCERIDES LEVEL 165 MG/DL (<150)
[2023-04-02 13:57] LABS: THYROID STIMULATING HORMONE 0.611 uIU/ML (0.55-4.78); TOTAL 25(OH) VITAMIN D 29.4 NG/ML (20.0-100.0)
== END ==
LOC: M LAB REF 12:39
PROVIDERS: ATTEND Family Medicine Addiction Medicine
DX: Z68.32 Body mass index [BMI] 32.0-32.9, adult (principal); E55.9 Vitamin D deficiency, unspecified

== ENCOUNTER 2023-04-12 14:49 | Emergency (ER) | payer OTHER ==
[2023-04-12] MEDS ORDERED: SILVER NITRATE APPLICATOR (1 = QTY 10) TOP ONE (18:30)
[2023-04-12 19:09] VITALS: BP 146/95; TEMP 96.7; O2SAT 98
== END 2023-04-12 19:16 | disposition home or self-care (01) ==
LOC: M ED 14:49
DX: R04.0 Epistaxis (principal); K21.9 Gastro-esophageal reflux disease without esophagitis; F41.9 Anxiety disorder, unspecified; F32.A Depression, unspecified; F10.10 Alcohol abuse, uncomplicated; Z88.2 Allergy status to sulfonamides; Z88.8 Allergy status to other drugs, medicaments and biological substances; Z79.899 Other long term (current) drug therapy

== ENCOUNTER → 2023-06-28 | Outpatient (CLI) | payer OTHER | LOC: M PLAIMG 13:39 → M PLALAB 13:39 | PROVIDERS: ATTEND Physician Assistant | DX: N20.0 Calculus of kidney (principal) ==

== ENCOUNTER → 2024-11-13 | Outpatient (CLI) | payer OTHER, SELFPAY ==
[~2024-11-13] MED LIST changes: -KLON1TAB PO; +KLON1TAB13 PO; -ZIPR60CA11; +ZIPR60CA21
== END ==
LOC: M CARPUL 10:58
PROVIDERS: ATTEND Physician Assistant
DX: R94.31 Abnormal electrocardiogram [ECG] [EKG] (principal)

== ENCOUNTER → 2024-12-08 | Outpatient (CLI) | payer OTHER | LOC: M CARPUL 11:45 | PROVIDERS: ATTEND Physician Assistant | DX: I77.810 Thoracic aortic ectasia (principal) ==

== ENCOUNTER → 2025-05-05 | Outpatient (REF) | payer OTHER ==
[~2025-05-05] MED LIST changes: -AMBI10TA PO; -FLOM0.4C39 PO; +PROZ20CA12 PO; +TAMS-18 PO; +ZOLP-533 PO
== END ==
LOC: M LAB REF 14:29
PROVIDERS: ATTEND Family Medicine Addiction Medicine
DX: N52.2 Drug-induced erectile dysfunction (principal)